=== PATIENT | female | born 1955 | race Caucasian/White ===

== ENCOUNTER 2018-08-10 17:42 | Inpatient (IN) | payer MEDICARE, OTHER ==
[~2018-08-10] VITALS: Ht 167.6 cm; Wt 53.1 kg
--- NOTE | 2018-08-10 18:58 | NUR ---
CALLED [facility] [phone]. SPOKE TO ARNOLD, SIDING MECHANIC STATES PT IS NON COMPLIANT W/ MEDS.
--- NOTE | 2018-08-10 19:20 | NUR ---
LAB AT BEDSIDE FOR BLOOD DRAW
[2018-08-10 19:27] LABS: BASOPHILS % (AUTO) 0.4 % (0.0-2.0); EOSINOPHILS % (AUTO) 1.1 % (0.0-6.0); HEMATOCRIT 38 % (33-45); HEMOGLOBIN 12.3 g/dL (11.5-14.8); LYMPHOCYTES # (AUTO) 1.1 /CMM (0.8-4.8); LYMPHOCYTES % (AUTO) 15.5 % (20.0-44.0); MEAN CORPUSCULAR HGB CONC 33 g/dl (31.0-36.0); MEAN CORPUSCULAR VOLUME 93 fL (82-100); MONOCYTES # (AUTO) 0.5 /CMM (0.1-1.30); MONOCYTES % (AUTO) 6.9 % (2.0-12.0); NEUTROPHILS # (AUTO) 5.4 /CMM (1.8-8.9); NEUTROPHILS % (AUTO) 76.1 % (43.0-81.0); PLATELET COUNT (AUTO) 322 /CMM (150-450); RDW COEFFICIENT OF VARIATION 14.6 (11.5-15.0); RED BLOOD CELL COUNT(AUTO) 4.06 MIL/uL (4.0-5.2); WHITE BLOOD COUNT (AUTO) 7.1 K/uL (4.3-11.0)
--- NOTE | 2018-08-10 19:29 | NUR ---
PT DROPPED OF BY ALEJANDRA NELSON FOR AMS, NOT EATING AND NO MEDICATION X 2 MONTHS, PT AOX3 AT THIS TIME. RR EVEN AND UNLABORED. NO SOB NOTED. NAD NOTED. PT NOTED WITH CARRILLO CATH, URINE FLOWING, NO S/S INFECTION AT THIS TIME. PT GOWNED AND PLACED ON MONITOR WAITING FOR MD MENDOZA.
[2018-08-10 19:36] LABS: CALCIUM, SERUM 9.1 mg/dL (8.5-10.1); CREATININE 0.5 mg/dL (0.6-1.3); POTASSIUM 3.6 mmol/L (3.5-5.1)
[2018-08-10] MEDS ORDERED: IV NS 0.9% 1,000 ML BAG IV ONE (20:00)
--- NOTE | 2018-08-10 20:05 | NUR ---
URINE COLLECTED VIA CARRILLO CATH PER MD ORDER. CALLED LAB FOR TRANSPORTATION SECURITY OFFICER.
--- NOTE | 2018-08-10 20:20 | NUR ---
PT TO CT.
[2018-08-10 20:37] LABS: APPEARANCE,URINE CLEAR (CLEAR); BILIRUBIN,URINE NEGATIVE (NEGATIVE); BLOOD, URINE 1+ Ery/uL (NEGATIVE); COLOR,URINE OTHER (YELLOW); KETONES,URINE NEGATIVE (NEGATIVE); LEUKOCYTE ESTERASE ,URINE 1+ (NEGATIVE); NITRITE, URINE NEGATIVE (NEGATIVE); PH,URINE 7.5 (5.0-8.0); PROTEIN,URINE NEGATIVE (NEGATIVE); UGLUCOSE NEGATIVE (NEGATIVE); UROBILINOGEN,URINE 0.2 EU/dL (0.2)
[2018-08-10 20:42] LABS: BACTERIA,URINE Few /HPF (None Seen); SQUAMOUS EPITHELIAL CELL,UR Few /HPF (None Seen)
[2018-08-10 21:15] VITALS: BP 151/90
[2018-08-10] MEDS ORDERED: CEFTRIAXONE 1GM BAG (ER ONLY) 50 ML IV ONE ×2 (21:30→21:31)
--- NOTE | 2018-08-10 21:30 | NUR ---
CALLED NURSING SUP REQUESTED MED SURG BED FOR THIS PATIENT.
--- NOTE | 2018-08-10 21:32 | NUR ---
PHLEBOTOMY BEDSIDE FOR BLOOD DRAW.
--- NOTE | 2018-08-10 21:37 | NUR ---
LAB AT [facility] FOR BLOOD CX DRAW
--- NOTE | 2018-08-10 21:39 | NUR ---
ADMIT TO ROOM 309-2
--- NOTE | 2018-08-10 21:48 | NUR ---
DR. COOPER SPEAKING TO DR. CLARK REGARDING ADMISSION.
--- NOTE | 2018-08-10 21:58 | NUR ---
REPORT GIVEN TO SKINNY MONZON FOR EDVIN
--- NOTE | 2018-08-10 22:06 | NUR ---
PT TRANSFERRED TO MS [facility] VIA [facility]. [facility] TRANSFUSING ON ADMISSION.
[2018-08-10] MEDS: AMLODIPINE BESYLATE 5 MG TABLET PO SCH (23:03)
[2018-08-10] MEDS ORDERED: ACETAMINOPHEN ES 500 MG TABLET PO PRN (23:30)
--- NOTE | 2018-08-10 23:50 | NUR ---
RN ADMITTING MS NOTES RECEIVED PT FROM ER VIA PEDRITO, PT IS A/OX3, SPEECH IS DELAYED BUT ABLE TO COMMUNICATE AND MAKE NEEDS KNOWN. IV ACCESS IN THE R AC #20G, CARRILLO CATHETER IN PLACE, VOIDING TO A STRAW YELLOW. NO COMPLAIN OF PAIN OR DISCOMFORT AT THE TIME. BED IN LOWEST LOCKED POSITION, CALL LIGHT WITHIN REACH AT ALL TIME, WILL CONTINUE TO MONITOR
[2018-08-11] MEDS: ENOXAPARIN SODIUM 40 MG/0.4 ML DISP.SYRIN SQ SCH ×2 (00:16→21:28)
[2018-08-11 00:47] VITALS: BP 135/85
--- NOTE | 2018-08-11 06:18 | NUR ---
RN CLOSING MS NOTES PT IN BED, RESTING A/OX4, VERBALLY RESPONSIVE AND ABLE TO MAKE NEEDS KNOWN. BREATHING EVEN AND UNLABORED ON O2 2L VIA NC, NO COUGH OR CONGESTION. NO COMPLAINT OF PAIN OR DISCOMFORT DURING SHIFT. BED IS LOCKED AND IN LOWEST POSITION, SIDE RAILS UP X2, CALL LIGHT IS WITHIN REACH. PERSONAL CARE RENDERED, KEPT CLEAN AND DRY AT ALL TIMES. NO SIGNIFICANT CHANGE DURING SHIFT, WILL ENDORSE TO DAY NURSE FOR EDVIN
[2018-08-11 06:28] LABS: BASOPHILS # (AUTO) 0.1 /CMM (0.0-0.2); BASOPHILS % (AUTO) 1.1 % (0.0-2.0); EOSINOPHILS % (AUTO) 2.3 % (0.0-6.0); HEMATOCRIT 38 % (33-45); HEMOGLOBIN 12.8 g/dL (11.5-14.8); LYMPHOCYTES # (AUTO) 1.3 /CMM (0.8-4.8); MEAN CORPUSCULAR HGB CONC 33 g/dl (31.0-36.0); MEAN CORPUSCULAR VOLUME 93 fL (82-100); MONOCYTES # (AUTO) 0.5 /CMM (0.1-1.30); MONOCYTES % (AUTO) 10.2 % (2.0-12.0); NEUTROPHILS # (AUTO) 2.9 /CMM (1.8-8.9); NEUTROPHILS % (AUTO) 59.4 % (43.0-81.0); PLATELET COUNT (AUTO) 315 /CMM (150-450); RDW COEFFICIENT OF VARIATION 14.4 (11.5-15.0); RED BLOOD CELL COUNT(AUTO) 4.14 MIL/uL (4.0-5.2); WHITE BLOOD COUNT (AUTO) 4.9 K/uL (4.3-11.0)
[2018-08-11 06:58] LABS: CALCIUM, SERUM 8.6 mg/dL (8.5-10.1); CREATININE 0.6 mg/dL (0.6-1.3); POTASSIUM 3.7 mmol/L (3.5-5.1)
--- NOTE | 2018-08-11 07:57 | NUR ---
MS RN OPENING NOTE PT RECEIVED IN BED AT LOWEST AND LOCKED POSITION WITH SIDE RAILS UP X2, A/O X2-3, BREATHING EVEN AND UNLABORED ON 2L VIA NC, PT WAS NOTED TO HAVE A CARRILLO IN PLACE THAT IS DRAINING, IV PATENT AND INTACT, SAFETY PRECAUTIONS IN PLACE, CALL LIGHT WITHIN REACH, WILL MONITOR ACCORDINGLY
[2018-08-11 08:00] VITALS: BP 152/94
[2018-08-11] MEDS: AMLODIPINE BESYLATE 5 MG TABLET PO SCH (09:03)
[2018-08-11 16:00] VITALS: BP 143/81
[2018-08-11] MEDS ORDERED: METO25TA6 PO (17:02)
[2018-08-11] MEDS ORDERED: HALO5TAB PO (17:02)
[2018-08-11] MEDS ORDERED: ASPI-1169 PO (17:02)
[2018-08-11] MEDS ORDERED: AMLO2.5T3 PO (17:02)
[2018-08-11] MEDS ORDERED: DOCU-141 PO (17:02)
[2018-08-11] MEDS ORDERED: ATOR80TA PO (17:02)
--- NOTE | 2018-08-11 18:31 | NUR ---
MS RN CLOSING NOTE PT IN BED AT LOWEST AND LOCKED POSITION WITH SIDE RAILS UP X2, A/O X2-3, BREATHING EVEN AND UNLABORED ON 2L VIA NC, PT CARRILLO WAS D/C, IV PATENT AND INTACT, PT IS AMBULATORY, NOTIFIED OF MED RECON, SAFETY PRECAUTIONS IN PLACE, CALL LIGHT WITHIN REACH, ALL NEEDS ATTENDED TO, WILL ENDORSE TO HAM BONER NURSE FOR CONTINUITY OF CARE
--- NOTE | 2018-08-11 19:45 | NUR ---
RN OPENING NOTES RECEIVED REPORT FROM DAYSHIFT SKINNY ALCANTARA. FOUND Pt AWAKE IN BED, WATCHING TV. NO S/S OF ACUTE DISTRESS OR SOB NOTED. RESPIRATIONS EVEN AND UNLABORED. Pt IS A/OX2-3; Pt IS VERBAL AND ABLE TO MAKE NEEDS KNOWN. CARRILLO CATHETER WAS D/C'd. BSC AT BEDSIDE. IV ACCESS ON RAC #20G, SL. SAFETY MEASURES IN PLACE. BED LOW, LOCKED, HOB ELEVATED, SIDE RAILS UP, CALL LIGHT AND BEDSIDE TABLE WITHIN REACH. WILL CONTINUE TO MONITOR Pt THROUGHOUT THE NIGHT FOR SAFETY.
[2018-08-11 20:00] VITALS: BP 134/83
[2018-08-11] MEDS ORDERED: CLON0.5T12 PO (22:49)
[2018-08-11] MEDS ORDERED: TEMA15CA PO (22:49)
[2018-08-11] MEDS ORDERED: ALBU8.5H8 INH (22:49)
[2018-08-11] MEDS ORDERED: OLAN20TA3 PO (22:49)
--- NOTE | 2018-08-12 06:45 | NUR ---
RN CLOSING NOTES NO SIGNIFICANT CHANGES IN Pt's CONDITION. Pt REMAINS STABLE AT THIS TIME. NO S/S OF ACUTE DISTRESS OR SOB NOTED DURING THE NIGHT. RESPIRATIONS EVEN AND UNLABORED. ALL NEEDS MET AND ATTENDED TO. SAFETY MEASURES IN PLACE. BED LOW, LOCKED, HOB ELEVATED, SIDE RAILS UP, CALL LIGHT AND BEDSIDE TABLE WITHIN REACH. WILL ENDORSE TO DAYSHIFT RN FOR Pt's EDVIN.
--- NOTE | 2018-08-12 07:28 | NUR ---
MS RN OPENING NOTES RECEIVED PT AWAKE IN BED IN NO ACUTE SIGNS OF DISTRESS. HOB ELEVATED. A/O X3. VERBALLY RESPONSIVE WITH NO C/O PAIN OR DISCOMFORTS VOICED AT THIS TIME. PT ON 02 VIA N/C AT 2LPM, TOLERATING WELL WITH NO SOB NOTED. IV ACCESS ON RAC #20G INTACT AND PATENT, SL ONLY. SAFETY MEASURES IN PLACE. BED LOW LOCKED POSITION WITH SIDE RAILS UP X2. CALL LIGHT AND BEDSIDE TABLE WITHIN REACH OF PT. WILL CONTINUE TO MONITOR PT ACCORDINGLY.
[2018-08-12 08:00] VITALS: BP 150/96
--- NOTE | 2018-08-12 08:20 | NUR ---
RN NOTES DR COOPER CAME TO UNIT AND INFORMED HIM TO VERIFY AND RECONCILE HOME MEDS AND SAID THAT HE WILL LOOK AT IT.
[2018-08-12] MEDS: AMLODIPINE BESYLATE 5 MG TABLET PO SCH (08:25)
[2018-08-12] MEDS ORDERED: METOPROLOL TARTRATE 25 MG TABLET PO SCH (09:00)
[2018-08-12] MEDS ORDERED: AMLODIPINE BESYLATE 2.5 MG TABLET PO SCH (09:00)
[2018-08-12] MEDS: ASPIRIN 81 MG TAB.CHEW PO SCH (09:15)
[2018-08-12] MEDS: clonazePAM 0.5 MG TABLET PO SCH ×2 (09:15→16:38)
[2018-08-12] MEDS: DOCUSATE SODIUM 100 MG CAPSULE PO SCH ×2 (09:16→16:38)
[2018-08-12] MEDS: HALOPERIDOL 5 MG TABLET PO SCH ×2 (09:16→16:38)
[2018-08-12] MEDS: BENAZEPRIL HCL 10 MG TABLET PO SCH (09:17)
[2018-08-12 10:26] LABS: CALCIUM, SERUM 8.8 mg/dL (8.5-10.1); CREATININE 0.6 mg/dL (0.6-1.3); POTASSIUM 4.1 mmol/L (3.5-5.1)
[2018-08-12 16:00] VITALS: BP 100/70
--- NOTE | 2018-08-12 18:34 | NUR ---
MS RN CLOSING NOTES PATIENT IN BED RESTING AT MODERATE HIGH BACKREST POSITION. A/O X3, SAME ABLE TO COMMUNICATE VERBALLY. PT WITH NO SIGNIFICANT CHANGES IN STATUS NOTED THROUGHOUT THE DAY. ON SUPPLEMENTAL 02 VIA N/C AT 2LPM, TOLERATING WELL WITH NO SOB NOTED. IV ACCESS ON RAC #20G INTACT AND PATENT, FLUSHES EASILY WITH NS, NO S/S OF INFILTRATION NOTED. ALL SAFETY MEASURES KEPT IN PLACE. BED IN LOW LOCKED POSITION WITH SIDE RAILS UP X2. CALL LIGHT AND BEDSIDE TABLE WITHIN EASY REACH OF PT. ALL NEEDS AND CARE ATTENDED WELL. WILL ENDORSE TO BINGO ATTENDANT NURSE FOR EDVIN.
--- NOTE | 2018-08-12 19:50 | NUR ---
RN OPENING NOTES RECEIVED REPORT FROM DAYSHIFT RN SANTANA. FOUND Pt ASLEEP IN BED. NO S/S OF ACUTE DISTRESS OR SOB NOTED. RESPIRATIONS EVEN AND UNLABORED. Pt IS A/OX2-3; Pt IS VERBAL AND ABLE TO MAKE NEEDS KNOWN. BSC AT BEDSIDE. IV ACCESS ON RAC #20G, SL. SAFETY MEASURES IN PLACE. BED LOW, LOCKED, HOB ELEVATED, SIDE RAILS UP, CALL LIGHT AND BEDSIDE TABLE WITHIN REACH. WILL CONTINUE TO MONITOR Pt THROUGHOUT THE NIGHT FOR SAFETY.
[2018-08-12 20:35] VITALS: BP 111/68
[2018-08-12] MEDS ORDERED: OLANZAPINE 10 MG TABLET PO SCH (22:00)
[2018-08-12] MEDS ORDERED: TEMAZEPAM 15 MG CAPSULE PO SCH (22:00)
[2018-08-12] MEDS: ENOXAPARIN SODIUM 40 MG/0.4 ML DISP.SYRIN SQ SCH (22:38)
--- NOTE | 2018-08-13 06:47 | NUR ---
RN CLOSING NOTES NO SIGNIFICANT CHANGES IN Pt's CONDITION. Pt REMAINS STABLE AT THIS TIME. NO S/S OF ACUTE DISTRESS OR SOB NOTED DURING THE NIGHT. RESPIRATIONS EVEN AND UNLABORED. ALL NEEDS MET AND ATTENDED TO. SAFETY MEASURES IN PLACE. BED LOW, LOCKED, HOB ELEVATED, SIDE RAILS UP, CALL LIGHT AND BEDSIDE TABLE WITHIN REACH. D/C PLAN TODAY TO [facility]. WILL ENDORSE TO DAYSHIFT RN FOR Pt's EDVIN.
[2018-08-13 08:00] VITALS: BP 125/75
--- NOTE | 2018-08-13 08:00 | NUR ---
M/S RN - Assessment Patient awake, A/O x 3, denies pain, no apparent distress noted, stable on room air. Saline lock on the RAC is patent, intact, with no signs of infiltration. Skin is intact, pt independent with bed mobility. Fall precautions maintained. Patient educated on plan of care. [facility]
[2018-08-13] MEDS: AMLODIPINE BESYLATE 5 MG TABLET PO SCH (08:36)
[2018-08-13] MEDS: clonazePAM 0.5 MG TABLET PO SCH ×2 (08:36→16:41)
[2018-08-13] MEDS: ASPIRIN 81 MG TAB.CHEW PO SCH (08:36)
[2018-08-13] MEDS: DOCUSATE SODIUM 100 MG CAPSULE PO SCH ×2 (08:36→16:41)
[2018-08-13] MEDS: HALOPERIDOL 5 MG TABLET PO SCH ×2 (08:37→16:41)
[2018-08-13] MEDS: BENAZEPRIL HCL 10 MG TABLET PO SCH (08:37)
--- NOTE | 2018-08-13 15:45 | NUR ---
M/S RN - Discharge Patient to be discharged to [facility] today. Reviewed discharge instructions with SKINNY Bowden [phone] and she verbalized full understanding and all questions answered to her satisfaction. Ambulance pick-up time at 18:00 per gearcase assembler. Endorsed pt accordingly.
[2018-08-13 16:00] VITALS: BP 96/69
--- NOTE | 2018-08-13 19:29 | NUR ---
M/S RN - Discharge Patient noted to be hypotensive BP=88/61, asymptomatic. Called SNF RN Dennise and made aware of pt's low BP. Per Dennise RN they won't accept the patient. Charge nurse made aware and will notify Dr. Watson. Endorsed to warehouse shift supervisor for continuity of care.
--- NOTE | 2018-08-13 19:51 | NUR ---
M/S RN - BP Patient's blood pressure now was 94/59, ambulance called ETA 20:15, endorsed to shift production supervisor for completion of discharge.
--- NOTE | 2018-08-13 20:01 | NUR ---
MS/RN OPENING NOTES PT RECEIVED WITH EYES CLOSED. RESTING COMFORTABLY IN BED. ON 2L O2 VIA NC, BREATHING EVEN AND UNLABORED. NO S/S OF ACUTE DISTRESS. PT MADE AWARE OF CONTINUATION OF DISCHARGE DUE TO INCREASED BP OF 94/59. SKINNY YADAV FROM [facility] MADE AWARE OF AMBULANCE ETA. WILL CONTINUE TO MONITOR
--- NOTE | 2018-08-13 20:35 | NUR ---
MS/RN NOTES AMBULANCE ARRIVED, REPORT GIVEN AND V/S CHECKED. BP 116/71, HR 98 SPO2 95% ON 2L O2. PT LEFT UNIT VIA GURNEY IN STABLE CONDITION. ALL BELONGINGS AND PAPERWORK SENT WITH PATIENT. ID BAND REMOVED.
[2018-08-13] MEDS ORDERED: ATORVASTATIN 10 MG TABLET PO SCH (22:00)
== END 2018-08-13 20:34 | DRG 641 ==
LOC: ER 17:47 → MED 21:45
PROVIDERS: ADMIT Internal Medicine; ATTEND Internal Medicine
DX: R63.1 Polydipsia (principal); E87.1 Hypo-osmolality and hyponatremia; G93.40 Encephalopathy, unspecified; F20.0 Paranoid schizophrenia; Z88.0 Allergy status to penicillin; I10 Essential (primary) hypertension; J44.9 Chronic obstructive pulmonary disease, unspecified; R09.02 Hypoxemia; R82.71 Bacteriuria; Z82.49 Family history of ischemic heart disease and other diseases of the circulatory system; Z87.891 Personal history of nicotine dependence; Z99.81 Dependence on supplemental oxygen
CPT/HCPCS: 36415; 70450-TC; 80048-TC; 81000-TC; 83605-TC; 84484-TC; 85025-TC; 87040-TC; 87081-TC; 87086-TC; 87186-TC; A4606; G0378; J0696; J1650; J7030; Z7610

== ENCOUNTER 2019-12-14 08:14 | Inpatient (IN) | payer MEDICARE, OTHER ==
[~2019-12-14] VITALS: Ht 165.1 cm; Wt 45.4 kg
[~2019-12-14 08:14] MED LIST: ALBU8.5H8 INH; AMLO2.5T4 PO; ASPI-1169 PO; ATOR80TA PO; BENA10TA74 PO; CLON0.5T4 PO; DOCU-141 PO; HALO5TAB PO; OLAN20TA3 PO; TEMA15CA PO
--- NOTE | 2019-12-14 08:18 | NUR ---
[id number]. PER EMS REPORT PT C/O SOB X TODAY , PT DENIES CHEST PAIN, C/O THE FOOD AT THE FACILITY. TO ER BED 11, HOOKED TO MONITOR, CHANGED TO HOSP GOWN, PROVIDED W WARM BLANKET, PATIENT AOx2, BREATGING EVEN AND UNLABORED, ON O2 AT 2LPM VIA NC. DR VILLATORO AT BEDSIDE
[2019-12-14] MEDS ORDERED: methylPREDNISolone SOD SUCC 125 MG/2ML VIAL IV ONE (08:30)
[2019-12-14] MEDS ORDERED: ALBUTEROL FS 2.5 MG/3 ML VIAL.NEB CONTNEB ONE (08:30)
[2019-12-14] MEDS ORDERED: OLANZAPINE 5 MG TABLET PO ONE (08:30)
[2019-12-14] MEDS ORDERED: ALBUTEROL FS 2.5 MG/3 ML VIAL.NEB ONE (08:32)
[2019-12-14] MEDS ORDERED: methylPREDNISolone SOD SUCC 125 MG/2ML VIAL ONE (08:33)
[2019-12-14] MEDS ORDERED: OLANZAPINE 5 MG TABLET ONE (08:35)
--- NOTE | 2019-12-14 08:41 | NUR ---
ONGOING BREATHING TX
[2019-12-14 08:52] LABS: BASOPHILS % (AUTO) 1.2 % (0.0-2.0); EOSINOPHILS % (AUTO) 1.5 % (0.0-6.0); HEMATOCRIT 38 % (33-45); HEMOGLOBIN 12.5 g/dL (11.5-14.8); LYMPHOCYTES # (AUTO) 0.8 /CMM (0.8-4.8); LYMPHOCYTES % (AUTO) 20.7 % (20.0-44.0); MEAN CORPUSCULAR HGB CONC 33 g/dl (31.0-36.0); MEAN CORPUSCULAR VOLUME 91 fL (82-100); MONOCYTES # (AUTO) 0.3 /CMM (0.1-1.30); MONOCYTES % (AUTO) 7.6 % (2.0-12.0); NEUTROPHILS # (AUTO) 2.8 /CMM (1.8-8.9); PLATELET COUNT (AUTO) 234 /CMM (150-450); RED BLOOD CELL COUNT(AUTO) 4.24 MIL/uL (4.0-5.2)
[2019-12-14 08:56] LABS: CALCIUM, SERUM 9.4 mg/dL (8.5-10.1); CARBON DIOXIDE 35 mmol/L (21-32); CHLORIDE 100 mmol/L (98-107); CREATININE 0.5 mg/dL (0.6-1.3); GLUCOSE 123 mg/dL (74-106); POTASSIUM 3.6 mmol/L (3.5-5.1); SODIUM SERUM 138 mmol/L (136-145); UREA NITROGEN, BLOOD 21 mg/dL (7-18)
[2019-12-14 09:02] LABS: ALANINE AMINOTRANSFERASE 14 U/L (12-78); ALBUMIN 3.8 g/dL (3.4-5.0); ALKALINE PHOSPHATASE 90 U/L (46-116); ASPARTATE AMINOTRANSFERASE 15 U/L (15-37); BILIRUBIN,DIRECT 0.1 mg/dL (0.0-0.2); BILIRUBIN,TOTAL 0.7 mg/dL (0.2-1.0); TOTAL PROTEIN, SERUM 6.7 g/dL (6.4-8.2)
--- NOTE | 2019-12-14 09:11 | NUR ---
PAGED DR. COOPER.
[2019-12-14] MEDS ORDERED: CHOL100040 PEG (09:25)
[2019-12-14] MEDS ORDERED: MONT10TA22 PO (09:25)
[2019-12-14] MEDS ORDERED: POLY17PO4 PO (09:25)
[2019-12-14] MEDS ORDERED: SENN-168 PO (09:25)
[2019-12-14] MEDS ORDERED: ALBU2.5V38 IH (09:25)
[2019-12-14] MEDS ORDERED: TIOT18CA3 IH (09:25)
[2019-12-14] MEDS ORDERED: BISA10SU11 RC (09:25)
[2019-12-14] MEDS ORDERED: FLUT1DIS5 IH (09:25)
[2019-12-14] MEDS ORDERED: BENA20TA78 PO (09:25)
[2019-12-14] MEDS ORDERED: MAGN400O6 PO (09:25)
[2019-12-14] MEDS ORDERED: ACET-868 PO (09:25)
--- NOTE | 2019-12-14 09:42 | NUR ---
CALLED NURSING SUP FOR M/S BED.
--- NOTE | 2019-12-14 09:56 | NUR ---
NURSING SUP GAVE M/S BED 321-2.
--- NOTE | 2019-12-14 10:14 | NUR ---
REPORT GIVEN TO CAROL OF MS UNIT
--- NOTE | 2019-12-14 10:55 | NUR ---
ADMISSION NOTES PT BROUGHT IN FROM ER AT 1055 AM VIA [facility]. WITH ADMITTING DX OF SOB/COPD EXACERBATION. HX OF COPD, HTN, BRONCHITIS, APPENDIX REMOVAL, HYOPERLIPIDEMIA AND SCHIZOPHRENIA. PT IS A0X2, SHE KNOWS WHO SHE IS, AND KNOWS THAT SHE IS AT [facility], HOWEVER, SHE IS UNABLE TO TELL ME TODAYS DAY/DATE. SHE HAS PERIODS OF FORGETFULNESS. HOWEVER, SHE DOES REMEMBER SOME OF HER MEDICAL HX. PT HAS NO CARDIAC OR RESP DISTRESS NOTED. NO SOB, STABLE ON O2 2L VIA NC SATURATING AT 95%. CONTINENT OF B/B, SHE TOLD ME THAT HER LAST BM WAS YESTERDAY. BODY CHECK/SKIN ASSESSMENT DONE. NOTED WITH R KNEE SCAR AND SACRAL REDNESS. SAFETY PRECAUTIONS IN PLACE. BED LOCKED AND IN LOW POSITION. SIDE RAILS UP. REMINDED PT TO CALL FOR ASSISTANCE IF WANTING TO GET UP FROM BED. CALL LIGHT WITHIN REACH. IV ACCESS NOTED ON R FORE ARM G18. FLUSHING WELL. NO S/S OF INFILTRATION OR INFECTION NOTED. MRSA SWAB OBTAINED. VS NOTED AT BP= 114/80, P=99, T=98.9, RR=18, 95% ON 2L O2. PT WAS ORIENTED TO UNIT AND ROOM.
--- NOTE | 2019-12-14 11:00 | NUR ---
SEEN BY DR COOPER PT SEEN BY DR COOPER. PROVIDED ALL ADMISSION ORDERS. MED RECON DONE. FAXED TO PHARMACY
[2019-12-14 11:28] VITALS: BP 114/80
[2019-12-14] MEDS ORDERED: BISACODYL SUPP (10 MG) 10 MG/SUPP.RECT SUPP.RECT RC PRN (12:00)
[2019-12-14] MEDS ORDERED: ALBUTEROL FS 2.5 MG/3 ML VIAL.NEB IH PRN (12:00)
[2019-12-14] MEDS ORDERED: MAGNESIUM HYDROXIDE 30 ML UDC PO PRN (12:00)
[2019-12-14] MEDS ORDERED: ACETAMINOPHEN 325 MG TABLET PO PRN (12:00)
[2019-12-14 12:33] VITALS: BP 114/80
[2019-12-14] MEDS: POLYETHYLENE GLYCOL 3350 17 GM POWD.PACK PO SCH (12:54)
[2019-12-14] MEDS: AMLODIPINE BESYLATE 2.5 MG TABLET PO SCH (12:54)
[2019-12-14] MEDS: clonazePAM 0.5 MG TABLET PO SCH ×2 (12:54→17:08)
[2019-12-14] MEDS: AZITHROMYCIN 250 MG TABLET PO SCH (12:54)
[2019-12-14] MEDS: BENAZEPRIL HCL 20 MG TABLET PO SCH (12:55)
[2019-12-14] MEDS: predniSONE 20 MG TABLET PO SCH (12:55)
[2019-12-14] MEDS: CHOLECALCIFEROL 1,000 UNIT TABLET (VIT D3) PO SCH (12:55)
[2019-12-14] MEDS: MONTELUKAST SODIUM (10MG) 10 MG TABLET PO SCH (17:08)
--- NOTE | 2019-12-14 17:49 | NUR ---
MS RN CLOSING NOTES PT IN BED, AWAKE AND A0X2. SHE HAS PERIODS OF FORGETFULNESS. PT HAS NO CARDIAC OR RESP DISTRESS NOTED. NO SOB, STABLE ON O2 2L VIA NC SATURATING AT 97%. CONTINENT OF B/B. SAFETY PRECAUTIONS IN PLACE. BED LOCKED AND IN LOW POSITION. SIDE RAILS UP. REMINDED PT TO CALL FOR ASSISTANCE IF WANTING TO GET UP FROM BED. CALL LIGHT WITHIN REACH. IV ACCESS NOTED ON R FORE ARM G18. FLUSHING WELL. NO S/S OF INFILTRATION OR INFECTION NOTED. NO COPMPLAINTS OF PAIN OR DISCOMFORT, RESTING COMFORTABLY IN BED.
--- NOTE | 2019-12-14 19:30 | NUR ---
MS RN OPENING NOTES PATIENT SLEEPING IN BED. EASY TO AWAKEN. A/OX2. ON 2L NC. NO S/S OF ACUTE RESPIRATORY DISTRESS AND NO COMPLAINTS OF PAIN AT THIS TIME. IV PRESENT ON RIGHT FA, SIZE 18, INTACT & PATENT, HEP LOCKED. BED LOCKED, ALARM ON, SIDE RAILS X2, CALL LIGHT WITHIN REACH. WILL CONTINUE TO MONITOR.
[2019-12-14 20:00] VITALS: BP 95/57
[2019-12-14] MEDS ORDERED: IV NS 0.9% 1,000 ML BAG IV PRN (20:30)
[2019-12-14] MEDS ORDERED: OLANZAPINE 10 MG TABLET PO SCH (22:00)
[2019-12-14] MEDS ORDERED: TEMAZEPAM 15 MG CAPSULE PO SCH (22:00)
[2019-12-14] MEDS: SENNOSIDES 8.6 MG TABLET PO SCH (22:33)
--- NOTE | 2019-12-15 07:46 | NUR ---
MS RN CLOSING NOTES PATIENT SLEEPING IN BED, EASY TO AWAKEN. A/O X2. ON 2L NC. NO S/S OF SOB OR PAIN AT THIS TIME. IV ON RIGHT FA, SIZE 18, INTACT & PATENT, NS RUNNING AT 75 CC/HR. BED LOCKED, ALARM ON, SIDE RAILS X2, CALL LIGHT WITHIN REACH. WILL ENDORSE TO DAY SHIFT NURSE TO FOLLOW PLAN OF CARE.
--- NOTE | 2019-12-15 07:50 | NUR ---
MS RN RECEIVED ON BED, AWAKE,ALERT,ORIENTED X2-3,NOT IN ANY FORM OF DISTRESS, RESPIRATIONS EVEN AND UNLABORED,NO SOB NOTED, LUNGS ARE DIMINISHED,ABDOMEN SOFT,POSITIVE BOWEL SOUNDS,DENIES PAIN AT THIS TIME,ALL NEEDS ATTENDED.
[2019-12-15 08:00] VITALS: BP 107/61
[2019-12-15] MEDS: AMLODIPINE BESYLATE 2.5 MG TABLET PO SCH (09:00)
[2019-12-15] MEDS: BENAZEPRIL HCL 20 MG TABLET PO SCH (09:00)
--- NOTE | 2019-12-15 09:30 | NUR ---
MS BABB BREAKFAST SERVED,DUE MEDS GIVEN,TOLERATED WELL.
[2019-12-15] MEDS: POLYETHYLENE GLYCOL 3350 17 GM POWD.PACK PO SCH (10:11)
[2019-12-15] MEDS: clonazePAM 0.5 MG TABLET PO SCH ×2 (10:11→17:07)
[2019-12-15] MEDS: CHOLECALCIFEROL 1,000 UNIT TABLET (VIT D3) PO SCH (10:12)
[2019-12-15] MEDS: predniSONE 20 MG TABLET PO SCH (10:12)
--- NOTE | 2019-12-15 14:00 | NUR ---
MS RN WAS SEEN BY DR. ALLISON Reynoso/ ORDERS MADE AND CARRIED OUT.
[2019-12-15 16:00] VITALS: BP 100/68
[2019-12-15] MEDS: AZITHROMYCIN 250 MG TABLET PO SCH (17:07)
[2019-12-15] MEDS: MONTELUKAST SODIUM (10MG) 10 MG TABLET PO SCH (17:07)
[2019-12-15 20:00] VITALS: BP_SYST 112; BP_SYST 94; BP_DIAS 64; BP_DIAS 66
--- NOTE | 2019-12-15 20:00 | NUR ---
MS RN NOTES RECEIVED PATIENT AWAKE IN BED WITH NO DISTRESS NOTED. CALL LIGHT WITHIN REACH. NO C/O PAIN OR DISCOMFORT. PERIPHERAL LINE INTACT AND PATENT. ENCOURAGED USE OF CALL LIGHT FOR ASSISTANCE AND VERBALIZED GOOD UNDERSTANDING. BED IN LOW LOCK SETTING WITH BED ALARM ON AND FUNCTIONING PROPERLY. ROOM FREE OF CLUTTER AND BELONGINGS KEPT NEAR BEDSIDE. WILL CONTINUE TO MONITOR
[2019-12-15] MEDS: IV NS 0.9% 1,000 ML IV PRN (20:57)
[2019-12-15] MEDS: MIRTAZAPINE 15 MG TABLET PO SCH (21:02)
[2019-12-15] MEDS: ATORVASTATIN 40 MG TABLET PO SCH (21:02)
[2019-12-15] MEDS: OLANZAPINE 10 MG TABLET PO SCH (21:02)
[2019-12-15] MEDS: SENNOSIDES 8.6 MG TABLET PO SCH (22:00)
[2019-12-16] VITALS: BP 110/59
[2019-12-16 04:00] VITALS: BP 101/51
--- NOTE | 2019-12-16 06:24 | NUR ---
MS RN NOTES PATIENT ASLEEP IN BED WITH NO DISTRESS NOTED. CALL LIGHT WITHIN REACH. NO C/O PAIN OR DISCOMFORT. ALL DUE MEDS GIVEN ORDERED WITH NO ASE. PERIPHERAL LINE INTACT AND PATENT. BED IN LOW LOCK SETTING WITH BED ALARM ON AND FUNCTIONING PROPERLY. ROOM FREE OF CLUTTER AND BELONGINGS KEPT NEAR BEDSIDE. WILL ENDORSE TO ONCOMING SHIFT.
--- NOTE | 2019-12-16 07:51 | NUR ---
MS RN OPENING NOTE PATIENT IN BED RESTING COMFORTABLY. PATIENT IN NO ACUTE DISTRESS. NO SOB NOTED. PATIENT BREATHING IS EVEN AND UNLABORED. PATIENT SAFETY PRECAUTIONS IN PLACE. PATIENT IN NO PAIN AT THIS TIME. PATIENT BED IS LOCKED AND IN LOWEST POSITION. CALL LIGHT WITHIN REACH. WILL CONTINUE TO MONITOR.
[2019-12-16 08:00] VITALS: BP_SYST 129; BP_SYST 142; BP_DIAS 70; BP_DIAS 80
[2019-12-16] MEDS: predniSONE 20 MG TABLET PO SCH (09:00)
[2019-12-16] MEDS: clonazePAM 0.5 MG TABLET PO SCH ×2 (09:00→17:05)
[2019-12-16] MEDS: POLYETHYLENE GLYCOL 3350 17 GM POWD.PACK PO SCH (09:00)
[2019-12-16] MEDS: CHOLECALCIFEROL 1,000 UNIT TABLET (VIT D3) PO SCH (09:00)
[2019-12-16] MEDS: AZITHROMYCIN 250 MG TABLET PO SCH (11:46)
[2019-12-16 12:52] LABS: ALBUMIN 3.2 g/dL (3.4-5.0); BILIRUBIN,TOTAL 0.4 mg/dL (0.2-1.0); CALCIUM, SERUM 8.7 mg/dL (8.5-10.1); CREATININE 0.5 mg/dL (0.6-1.3); POTASSIUM 4.1 mmol/L (3.5-5.1); TOTAL PROTEIN, SERUM 5.8 g/dL (6.4-8.2)
[2019-12-16] MEDS: ENSURE ENLIVE CHOC 237 ML CAN PO SCH ×2 (15:10→17:06)
[2019-12-16] MEDS: IV NS 0.9% 1,000 ML IV PRN (15:30)
[2019-12-16 16:00] VITALS: BP 101/73
[2019-12-16] MEDS: MONTELUKAST SODIUM (10MG) 10 MG TABLET PO SCH (17:06)
--- NOTE | 2019-12-16 19:40 | NUR ---
MS RN CLOSING NOTE PATIENT IN BED RESTING COMFORTABLY.PATIENT IN NO ACUTE DISTRESS. NO SOB NOTED. PATIENT BREATHING IS EVEN AND UNLABORED. PATIENT NEEDS AND CONCERNS ADDRESSED. PATIENT SAFETY PRECAUTIONS IN PLACE. IV PATENT AND INTACT. PATIENT BED IS LOCKED AND IN LOWEST POSITION. CALL LIGHT WITHIN REACH. WILL ENDORSE CARE TO PM SHIFT FOR EDVIN.
--- NOTE | 2019-12-16 20:00 | NUR ---
ms pako initial notes received report from am nurse and seen pt in bed awake and alert watching TV at this time with IVF NS at 75ml/hr infusing on her right forearm patent and intact. pt denies any pain or any discomfort. kept her warm and comfortable at all times. place call light at reach. will continue monitoring. safety precaution applied for pt safety.
[2019-12-16 21:18] VITALS: BP 117/73
[2019-12-16] MEDS: ATORVASTATIN 40 MG TABLET PO SCH (21:51)
[2019-12-16] MEDS: MIRTAZAPINE 15 MG TABLET PO SCH (21:51)
[2019-12-16] MEDS: OLANZAPINE 10 MG TABLET PO SCH (21:51)
[2019-12-16] MEDS: SENNOSIDES 8.6 MG TABLET PO SCH (21:51)
--- NOTE | 2019-12-16 21:55 | NUR ---
ms pako notes routine meds given pt tolerated well, no aspiration noted. kept her warm and comfortable at all times. place call light at reach.
--- NOTE | 2019-12-17 01:53 | NUR ---
ms pako notes checked pt pt sleeping comfortably in bed without any acute distress noted. IVF still infusing. kept her warm and comfortable at all times. place call light at reach. will continue monitoring.
[2019-12-17 06:24] LABS: BASOPHILS % (AUTO) 0.3 % (0.0-2.0); EOSINOPHILS % (AUTO) 0.4 % (0.0-6.0); HEMATOCRIT 37 % (33-45); HEMOGLOBIN 12.3 g/dL (11.5-14.8); LYMPHOCYTES # (AUTO) 1.5 /CMM (0.8-4.8); LYMPHOCYTES % (AUTO) 33.4 % (20.0-44.0); MEAN CORPUSCULAR HGB CONC 34 g/dl (31.0-36.0); MEAN CORPUSCULAR VOLUME 90 fL (82-100); MONOCYTES # (AUTO) 0.4 /CMM (0.1-1.30); MONOCYTES % (AUTO) 8.3 % (2.0-12.0); NEUTROPHILS # (AUTO) 2.6 /CMM (1.8-8.9); NEUTROPHILS % (AUTO) 57.6 % (43.0-81.0); PLATELET COUNT (AUTO) 212 /CMM (150-450); RED BLOOD CELL COUNT(AUTO) 4.08 MIL/uL (4.0-5.2); WHITE BLOOD COUNT (AUTO) 4.5 K/uL (4.3-11.0)
[2019-12-17] MEDS: IV NS 0.9% 1,000 ML IV PRN (06:35)
--- NOTE | 2019-12-17 06:57 | NUR ---
ms men's golf coach closing notes pt awake and alert watching tv and denies any pain or any discomfort. stable jeanne the night and slept well. all due meds given and all needs met. kept her warm and comfortable at all times. will endorse to am nurse for continuity of care.
--- NOTE | 2019-12-17 07:30 | NUR ---
RN MS NOTES PT IN BED, AWAKE, ALERT AND ORIENTED, NO COMPLAINT OF PAIN, RESPIRATIONS NORMAL, NO COMPLAINT OF SOB, STATED SHE SLEPT WELL DURING THE NIGHT, CALL LIGHT WITHIN REACH, IV FLUIDS INFUSING WELL, KEPT COMPUTER TECHNOLOGY TEACHER BED.
[2019-12-17 08:00] VITALS: BP 147/76
[2019-12-17] MEDS: predniSONE 20 MG TABLET PO SCH (08:18)
[2019-12-17] MEDS: FLUTICASONE/VILANTEROL 1 EACH BLST.W.DEV IH SCH (08:18)
[2019-12-17] MEDS: POLYETHYLENE GLYCOL 3350 17 GM POWD.PACK PO SCH (08:18)
[2019-12-17] MEDS: CHOLECALCIFEROL 1,000 UNIT TABLET (VIT D3) PO SCH (08:18)
[2019-12-17] MEDS: clonazePAM 0.5 MG TABLET PO SCH ×2 (08:19→17:10)
[2019-12-17] MEDS: ENSURE ENLIVE CHOC 237 ML CAN PO SCH ×3 (08:31→17:09)
[2019-12-17] MEDS: AZITHROMYCIN 250 MG TABLET PO SCH (12:28)
--- NOTE | 2019-12-17 13:00 | NUR ---
RN MS NOTES PT IN BED, AWAKE, ALERT AND ORIENTED, WATCHING TV, NO COMPLAINT AT THIS TIME, CALL LIGHT WITHIN REACH, NOTED WITH GOOD APPETITE, NEEDS ATTENDED, IVF INFUSING WELL.
[2019-12-17] MEDS: IPRATROPIUM NEB FS 0.5 MG/2.5 ML AMPUL.NEB NEB SCH ×2 (15:56→20:10)
[2019-12-17 16:00] VITALS: BP 105/77
[2019-12-17] MEDS: MONTELUKAST SODIUM (10MG) 10 MG TABLET PO SCH (17:10)
--- NOTE | 2019-12-17 18:59 | NUR ---
RN MS NOTES PT IN BED, AWAKE, ALERT AND ORIENTED, NO COMPLAINT OF PAIN, NOT IN DISTRESS, CALL LIGHT WITHIN REACH, ASSISTED WITH NEEDS, IV FLUIDS INFUSING WELL, ALL NEEDS ATTENDED.
--- NOTE | 2019-12-17 20:00 | NUR ---
RN OPEN NOTES RECEIVED PATIENT AWAKE IN BED. A/OX2. NO SIGNS OF DISTRESS OR DISCOMFORT. BREATHING EVEN AND UNLABORED. ON 2LPM O2 VIA NC. IV ACCESS IN RFA WITH NS INFUSING, PATENT AND INTACT, NO SIGNS OF REDNESS OR INFILTRATION. BED IN LOW LOCKED POSITION WITH SIDE RAILS X2 CALL LIGHT WITHIN REACH. WILL CONTINUE TO MONITOR.
[2019-12-17] MEDS: SENNOSIDES 8.6 MG TABLET PO SCH (21:21)
[2019-12-17] MEDS: MIRTAZAPINE 15 MG TABLET PO SCH (21:22)
[2019-12-17] MEDS: ATORVASTATIN 40 MG TABLET PO SCH (21:22)
[2019-12-17] MEDS: OLANZAPINE 10 MG TABLET PO SCH (21:22)
[2019-12-17 23:14] VITALS: BP 114/71
[2019-12-18] MEDS: IPRATROPIUM NEB FS 0.5 MG/2.5 ML AMPUL.NEB NEB SCH ×4 (01:21→20:04)
--- NOTE | 2019-12-18 07:10 | NUR ---
RN CLOSING NOTES PATIENT AWAKE IN BED. A/OX3. NO SIGNS OF DISTRESS OR DISCOMFORT. BREATHING EVEN AND UNLABORED. ON 2LPM O2 VIA NC. IV ACCESS IN RFA WITH NS INFUSING, PATENT AND INTACT, NO SIGNS OF REDNESS OR INFILTRATION. ALL NEEDS MET. NO SIGNIFICANT CHANGES THROUGH THE NIGHT. BED IN LOW LOCKED POSITION WITH SIDE RAILS X2 CALL LIGHT WITHIN REACH. ENDORSED TO AM SHIFT FOR EDVIN.
--- NOTE | 2019-12-18 07:14 | NUR ---
MS RN OPENING NOTES RECEIVED PATIENT AWAKE IN BED IN NO ACUTE SIGNS OF DISTRESS. A/O X3-4. ABLE TO MAKE NEEDS KNOWN, DENIES PAIN OR ANY DISCOMFORTS AT THIS TIME. ON O2 VIA NC @ 2LPM, TOLERATING WELL WITH NO SOB NOTED. IV ACCESS ON RFA G#24 INTACT AND PATENT, NO SIGNS OF REDNESS OR INFILTRATION. SAFETY MEASURES IN PLACE: BED IN LOW LOCKED POSITION WITH SIDE RAILS UP X2. CALL LIGHT WITHIN REACH. WILL CONTINUE TO MONITOR.
[2019-12-18 08:00] VITALS: BP 131/86
[2019-12-18] MEDS: clonazePAM 0.5 MG TABLET PO SCH ×2 (08:10→17:15)
[2019-12-18] MEDS: POLYETHYLENE GLYCOL 3350 17 GM POWD.PACK PO SCH (08:10)
[2019-12-18] MEDS: predniSONE 20 MG TABLET PO SCH (08:11)
[2019-12-18] MEDS: CHOLECALCIFEROL 1,000 UNIT TABLET (VIT D3) PO SCH (08:11)
[2019-12-18] MEDS: FLUTICASONE/VILANTEROL 1 EACH BLST.W.DEV IH SCH (08:18)
[2019-12-18] MEDS: ENSURE ENLIVE CHOC 237 ML CAN PO SCH ×3 (08:28→16:52)
[2019-12-18] MEDS: AZITHROMYCIN 250 MG TABLET PO SCH (12:38)
[2019-12-18 16:00] VITALS: BP 102/70
[2019-12-18] MEDS: MONTELUKAST SODIUM (10MG) 10 MG TABLET PO SCH (17:15)
--- NOTE | 2019-12-18 17:46 | NUR ---
MS RN CLOSING NOTES PT IN BED AWAKE, ALERT AND ORIENTED X3. NO CARDIAC OR RESP DISTRESS NOTED. NO SOB NOTED. ABLE TO MAKE NEEDS KNOWN, DENIES PAIN OR ANY DISCOMFORTS AT THIS TIME. ON O2 VIA NC @ 2LPM, TOLERATING WELL WITH NO SOB NOTED. IV ACCESS ON RFA G#24 INTACT AND PATENT, NO SIGNS OF REDNESS OR INFILTRATION. SAFETY MEASURES IN PLACE: BED IN LOW LOCKED POSITION WITH SIDE RAILS UP X2. CALL LIGHT WITHIN REACH. WILL CONTINUE TO MONITOR.
--- NOTE | 2019-12-18 19:26 | NUR ---
MS/RN OPENING NOTES: RECEIVED PATIENT AWAKE IN BED, A/OX2-3. NO SOB NOTED, NO ACUTE SIGNS OF DISTRESS. VERBALLY RESPONSIVE AND ABLE TO MAKE NEEDS KNOWN, DENIES PAIN OR ANY DISCOMFORTS AT THIS TIME. ON O2 VIA NC @ 2LPM, TOLERATING WELL. IV ACCESS ON RFA G#24 INTACT AND PATENT, WITH NS RUNNING AT 75ML/HR. NO SIGNS OF REDNESS OR INFILTRATION. SAFETY MEASURES IN PLACE: BED IN LOW LOCKED POSITION WITH SIDE RAILS UP X2. CALL LIGHT WITHIN REACH. WILL CONTINUE TO MONITOR ACCORDINGLY.
[2019-12-18 20:00] VITALS: BP 103/73
[2019-12-18] MEDS: MIRTAZAPINE 15 MG TABLET PO SCH (21:16)
[2019-12-18] MEDS: ATORVASTATIN 40 MG TABLET PO SCH (21:16)
[2019-12-18] MEDS: SENNOSIDES 8.6 MG TABLET PO SCH (21:16)
[2019-12-18] MEDS: OLANZAPINE 10 MG TABLET PO SCH (21:17)
[2019-12-19] MEDS: IPRATROPIUM NEB FS 0.5 MG/2.5 ML AMPUL.NEB NEB SCH ×5 (01:01→20:18)
[2019-12-19] MEDS: IV NS 0.9% 1,000 ML IV PRN ×2 (02:00→15:51)
--- NOTE | 2019-12-19 06:33 | NUR ---
MS/RN CLOSING NOTES: PATIENT SLEEPING IN BED, REMAINS A/OX2-3. NO SOB NOTED, NO ACUTE SIGNS OF DISTRESS. VERBALLY RESPONSIVE AND ABLE TO MAKE NEEDS KNOWN, DENIES PAIN OR ANY DISCOMFORT AT THIS TIME. ON O2 VIA NC @ 2LPM, TOLERATING WELL. IV ACCESS ON RFA G#24 INTACT AND PATENT, WITH NS RUNNING AT 75ML/HR. NO SIGNS OF REDNESS OR INFILTRATION. ALL MEDS GIVEN ORDERED. ALL NEEDS MET AND RENDERED. SAFETY MEASURES IN PLACE: BED IN LOW LOCKED POSITION WITH SIDE RAILS UP X2. CALL LIGHT WITHIN REACH. WILL ENDORSE TO DAY SHIFT RN FOR EDVIN.
--- NOTE | 2019-12-19 07:59 | NUR ---
MS RN OPENING NOTES PT IN BED AWAKE, ALERT AND ORIENTED X3. NO CARDIAC OR RESP DISTRESS NOTED. NO COMPLAINTS OF PAIN OR DISCOMFORT. NO SOB NOTED. PT IS ABLE TO MAKE NEEDS KNOWN, DENIES PAIN OR ANY DISCOMFORTS AT THIS TIME. ON O2 VIA NC @ 2LPM, TOLERATING WELL WITH NO SOB NOTED. IV ACCESS ON RFA G#24 INTACT AND PATENT, NO SIGNS OF REDNESS OR INFILTRATION. SAFETY MEASURES IN PLACE: BED IN LOW LOCKED POSITION WITH SIDE RAILS UP X2. CALL LIGHT WITHIN REACH. WILL CONTINUE TO MONITOR.
[2019-12-19 08:00] VITALS: BP 123/73
[2019-12-19] MEDS: ENSURE ENLIVE CHOC 237 ML CAN PO SCH ×3 (08:11→16:40)
[2019-12-19] MEDS: FLUTICASONE/VILANTEROL 1 EACH BLST.W.DEV IH SCH (08:11)
[2019-12-19] MEDS: POLYETHYLENE GLYCOL 3350 17 GM POWD.PACK PO SCH (08:11)
[2019-12-19] MEDS: CHOLECALCIFEROL 1,000 UNIT TABLET (VIT D3) PO SCH (08:12)
[2019-12-19] MEDS: clonazePAM 0.5 MG TABLET PO SCH ×2 (08:12→16:41)
[2019-12-19] MEDS: AZITHROMYCIN 250 MG TABLET PO SCH (12:14)
[2019-12-19 16:00] VITALS: BP 112/61
[2019-12-19] MEDS: MONTELUKAST SODIUM (10MG) 10 MG TABLET PO SCH (17:13)
--- NOTE | 2019-12-19 18:16 | NUR ---
MS RN CLOSING NOTES PT IN BED AWAKE, ALERT AND ORIENTED X3. NO CARDIAC OR RESP DISTRESS NOTED. NO COMPLAINTS OF PAIN OR DISCOMFORT. NO SOB NOTED. PT IS ABLE TO MAKE NEEDS KNOWN, DENIES PAIN OR ANY DISCOMFORT AT THIS TIME. ON O2 VIA NC @ 2LPM, TOLERATING WELL WITH NO SOB NOTED. PT HAD X1 BM TODAY. NO S/SX OF DEHYDRATION NOTED. PT OBSERVED DRINKING A LOT OF FLUIDS. IV ACCESS ON RFA G#24 INTACT AND PATENT, NO SIGNS OF REDNESS OR INFILTRATION. SAFETY MEASURES IN PLACE: BED IN LOW LOCKED POSITION WITH SIDE RAILS UP X2. CALL LIGHT WITHIN REACH.
--- NOTE | 2019-12-19 19:40 | NUR ---
MS RN OPENING NOTES PATIENT RESTING IN BED COMFORTABLY; NO SOB; BREATHING EVEN AND UNLABORED; PATIENT TOLERATING ROOM AIR WELL; A/O X2-3; L UA #18 RUNNING NS @ 75ML/HR; IV SITE INTACT AND PATENT; FLUSHING WELL; SAFETY PRECAUTIONS IMPLEMENTED; BED LOCKED IN LOW POSITION; SIDE RAILS X2; CALL LIGHT WITHIN EASY REACH; WILL CONTINUE TO MONITOR
[2019-12-19 20:00] VITALS: BP 100/58
[2019-12-19] MEDS: ATORVASTATIN 40 MG TABLET PO SCH (21:05)
[2019-12-19] MEDS: SENNOSIDES 8.6 MG TABLET PO SCH (21:06)
[2019-12-19] MEDS: MIRTAZAPINE 15 MG TABLET PO SCH (21:06)
[2019-12-19] MEDS: OLANZAPINE 10 MG TABLET PO SCH (21:06)
[2019-12-20] MEDS: IPRATROPIUM NEB FS 0.5 MG/2.5 ML AMPUL.NEB NEB SCH ×4 (01:54→20:28)
[2019-12-20] MEDS: IV NS 0.9% 1,000 ML IV PRN (05:06)
--- NOTE | 2019-12-20 06:31 | NUR ---
MS RN CLOSING NOTES PATIENT RESTING COMFORTABLY IN BED; A/O X2-3; NO SOB; NO S/S OF ACUTE RESPIRATORY DISTRESS NOTED; BREATHING EVEN AND UNLABORED; L UA #18 INTACT AND PATENT, RUNNING NS @ 75ML/HR; PATIENT TOLERATING IVF WELL; ALL NEEDS RENDERED; SAFETY PRECAUTIONS IMPLEMENTED; BED LOCKED IN LOW POSITION; SIDE RAILS X2; CALL LIGHT WITHIN REACH; WILL ENDORSE EDVIN TO ONCOMING SHIFT
[2019-12-20 08:00] VITALS: BP 141/80
--- NOTE | 2019-12-20 08:00 | NUR ---
MS RN OPENING NOTE PT IN BED AWAKE, ALERT AND ORIENTED X3. NO CARDIAC OR RESP DISTRESS NOTED. NO COMPLAINTS OF PAIN OR DISCOMFORT. NO SOB NOTED. PT IS ABLE TO MAKE NEEDS KNOWN, NO COMPLAINTS OF PAIN OR DISCOMFORT. ON O2 VIA NC @ 2LPM, TOLERATING WELL WITH NO SOB NOTED. IV ACCESS ON RFA G#24 INTACT AND PATENT, NO SIGNS OF REDNESS OR INFILTRATION. SAFETY MEASURES IN PLACE: BED IN LOW LOCKED POSITION WITH SIDE RAILS UP X2. CALL LIGHT WITHIN REACH. WILL CONTINUE TO MONITOR.
[2019-12-20] MEDS: CHOLECALCIFEROL 1,000 UNIT TABLET (VIT D3) PO SCH (08:17)
[2019-12-20] MEDS: clonazePAM 0.5 MG TABLET PO SCH ×2 (08:17→17:10)
[2019-12-20] MEDS: POLYETHYLENE GLYCOL 3350 17 GM POWD.PACK PO SCH (08:17)
[2019-12-20] MEDS: ENSURE ENLIVE CHOC 237 ML CAN PO SCH ×3 (08:18→17:20)
[2019-12-20] MEDS: FLUTICASONE/VILANTEROL 1 EACH BLST.W.DEV IH SCH (08:18)
[2019-12-20] MEDS: AZITHROMYCIN 250 MG TABLET PO SCH (11:52)
[2019-12-20 16:00] VITALS: BP 110/58
[2019-12-20] MEDS: MONTELUKAST SODIUM (10MG) 10 MG TABLET PO SCH (17:10)
--- NOTE | 2019-12-20 18:10 | NUR ---
MS RN CLOSING NOTES PT IN BED AWAKE, ALERT AND ORIENTED X3. NO CARDIAC OR RESP DISTRESS NOTED. NO COMPLAINTS OF PAIN OR DISCOMFORT. NO SOB NOTED. PT IS ABLE TO MAKE NEEDS KNOWN, DENIES PAIN OR ANY DISCOMFORT AT THIS TIME. ON O2 VIA NC @ 2LPM, TOLERATING WELL WITH NO SOB NOTED. PT IS WELL HYDRATED. PT OBSERVED DRINKING A LOT OF FLUIDS. IV ACCESS ON RFA G#24 INTACT AND PATENT, NO SIGNS OF REDNESS OR INFILTRATION NOTED. SAFETY MEASURES IN PLACE: BED IN LOW LOCKED POSITION WITH SIDE RAILS UP X2. CALL LIGHT WITHIN REACH.
--- NOTE | 2019-12-20 19:54 | NUR ---
MS RN OPENING NOTES PATIENT AWAKE, A/O 2-3; RESTING IN BED COMFORTABLY; PATIENT ON 2L NC, TOLERATING WELL, NO SOB OR S/S OF ACUTE RESPIRATORY DISTRESS NOTED; L UA #18 RUNNING NS @ 75ML/HR; TOLERATING IVF WELL; SAFETY PRECAUTIONS IMPLEMENTED; BED LOCKED IN LOW POSITION; SIDE RAILS X2' CALL LIGHT WITHIN REACH; WILL CONTINUE TO MONITOR
[2019-12-20 20:00] VITALS: BP 128/69
[2019-12-20] MEDS: SENNOSIDES 8.6 MG TABLET PO SCH (21:03)
[2019-12-20] MEDS: ATORVASTATIN 40 MG TABLET PO SCH (21:04)
[2019-12-20] MEDS: OLANZAPINE 10 MG TABLET PO SCH (21:04)
[2019-12-20] MEDS: MIRTAZAPINE 15 MG TABLET PO SCH (21:04)
[2019-12-21] MEDS: IPRATROPIUM NEB FS 0.5 MG/2.5 ML AMPUL.NEB NEB SCH ×3 (01:56→13:05)
--- NOTE | 2019-12-21 06:30 | NUR ---
MS RN CLOSING NOTES PATIENT AWAKE, A/O X2-3; BREATHING EVEN AND UNLABORED; NO SOB NOTED; PATIENT ON 2L NC, TOLERATING WELL; ALL NEEDS RENDERED; L UA #18 RUNNING NS @ 75ML/HR; SAFETY PRECAUTIONS IMPLEMENTED; BED LOCKED IN LOW POSITION; SIDE RAILS X2; CALL LIGHT WITHIN REACH; WILL ENDORSE EDVIN TO ONCOMING SHIFT
[2019-12-21 07:49] VITALS: BP 131/76
--- NOTE | 2019-12-21 08:00 | NUR ---
RN NOTES RECEIVED PATIENT IN THE BED A/O X3, ON O2-2L NC. PATIENT REFUSED PAIN, REDIRECTABLE. ADMINISTERED SCHEDULED MEDICATION. PATIENT SELF CARE, USING BED SIDE COMMODE. V/S STABLE. NEEDS ATTENDED AND ANTICIPATED. CALL LIGHT WITHIN TO REACH, IV ACCESS ON LEFT UA INTACT INFUSIN NS AT 75 ML/HR INTACT. CONTINUED MONITORING.
[2019-12-21] MEDS: ENSURE ENLIVE CHOC 237 ML CAN PO SCH ×3 (08:50→16:32)
[2019-12-21] MEDS: CHOLECALCIFEROL 1,000 UNIT TABLET (VIT D3) PO SCH (08:51)
[2019-12-21] MEDS: POLYETHYLENE GLYCOL 3350 17 GM POWD.PACK PO SCH (08:51)
[2019-12-21] MEDS: clonazePAM 0.5 MG TABLET PO SCH ×2 (08:51→16:31)
[2019-12-21] MEDS: FLUTICASONE/VILANTEROL 1 EACH BLST.W.DEV IH SCH (08:52)
[2019-12-21] MEDS: AZITHROMYCIN 250 MG TABLET PO SCH (12:03)
--- NOTE | 2019-12-21 14:00 | NUR ---
RN NOTES PER HOSPITALIST PATIENT WILL DISCHARGE TO THE SNF.
[2019-12-21] MEDS: MONTELUKAST SODIUM (10MG) 10 MG TABLET PO SCH (16:32)
--- NOTE | 2019-12-21 16:45 | NUR ---
HOTEL OFFICE MANAGER NOTES PATIENT DISCHARGE AT THIS TIME GOING SNF. PATIENT A/O X3, ON O2-2L NC, V/S STABLE. NO ACUTE SOB, REDIRECTABLE, REFUSED PAIN. MED RECONCILIATION AND DISCHARGE ORDER REVIEWED AND EXPLAINED TO. REPORT GIVEN SNF RN. RN VERBALIZED UNDERSTATING. PATIENT BELONGING WITH HER. PATIENT SIGN PAPERWORK, ADMINISTERED 1700 MEDICATION. PATIENT SIGN PAPERWORK. PATIENT REGISTERED DIETETIC TECHNICIAN BY AMBULANCE.
== END 2019-12-21 16:40 | DRG 202 ==
LOC: ER 08:16 → MED 10:15
PROVIDERS: ADMIT Internal Medicine; ATTEND Internal Medicine
DX: J20.9 Acute bronchitis, unspecified (principal); N17.9 Acute kidney failure, unspecified; F20.0 Paranoid schizophrenia; G93.40 Encephalopathy, unspecified; Z68.1 Body mass index [BMI] 19.9 or less, adult; J44.1 Chronic obstructive pulmonary disease with (acute) exacerbation; J44.0 Chronic obstructive pulmonary disease with (acute) lower respiratory infection; F29 Unspecified psychosis not due to a substance or known physiological condition; I10 Essential (primary) hypertension; Z87.891 Personal history of nicotine dependence; G47.00 Insomnia, unspecified; Z91.19 Patient's noncompliance with other medical treatment and regimen; Z99.81 Dependence on supplemental oxygen; Z79.82 Long term (current) use of aspirin; R63.4 Abnormal weight loss; Z88.0 Allergy status to penicillin; E86.0 Dehydration
CPT/HCPCS: 36415; 71045-TC; 80048-TC; 80053-TC; 80076-TC; 83605-TC; 84484-TC; 85025-TC; 87040-TC; 87081-TC; 94799-TC; G0378; J2930; J7030

== ENCOUNTER 2020-02-24 13:22 | Inpatient (IN) | payer MEDICARE, OTHER ==
[~2020-02-24] VITALS: Ht 165.1 cm; Wt 52.2 kg
[~2020-02-24 13:22] MED LIST changes: +ACET-868 PO; +ALBU2.5V38 IH; -ASPI-1169 PO; -BENA10TA74 PO; +BENA20TA78 PO; +BISA10SU11 RC; +CHOL100040 PEG; -DOCU-141 PO; +FLUT1DIS5 IH; -HALO5TAB PO; +MAGN400O6 PO; +MONT10TA22 PO; +POLY17PO4 PO; +SENN-261 PO; +TIOT18CA3 IH
[2020-02-24] MEDS ORDERED: methylPREDNISolone SOD SUCC 125 MG/2ML VIAL IV ONE (13:30)
[2020-02-24] MEDS ORDERED: ALBUTEROL SULFATE INH 18 GM HFA.AER.AD IH PRN ×2 (13:30→18:30)
[2020-02-24] MEDS ORDERED: methylPREDNISolone SOD SUCC 125 MG/2ML VIAL ONE (13:36)
[2020-02-24 13:44] LABS: BASOPHILS % (AUTO) 0.5 % (0.0-2.0); EOSINOPHILS % (AUTO) 0.2 % (0.0-6.0); HEMATOCRIT 33 % (33-45); LYMPHOCYTES # (AUTO) 0.4 /CMM (0.8-4.8); LYMPHOCYTES % (AUTO) 15.4 % (20.0-44.0); MEAN CORPUSCULAR HGB CONC 33 g/dl (31.0-36.0); MEAN CORPUSCULAR VOLUME 89 fL (82-100); MONOCYTES # (AUTO) 0.4 /CMM (0.1-1.30); MONOCYTES % (AUTO) 15.5 % (2.0-12.0); NEUTROPHILS # (AUTO) 1.9 /CMM (1.8-8.9); NEUTROPHILS % (AUTO) 68.4 % (43.0-81.0); PLATELET COUNT (AUTO) 219 /CMM (150-450); RED BLOOD CELL COUNT(AUTO) 3.72 MIL/uL (4.0-5.2); WHITE BLOOD COUNT (AUTO) 2.8 K/uL (4.3-11.0)
--- NOTE | 2020-02-24 13:45 | NUR ---
ELEN FROM SNF. TO ER BED 7. AAOX4. IN MILD RESP DISTRESS, BREATHING RAPID AND SHALLOW. ON O2 VIA NC @ 2LPM W/ O2 SAT 98%. SENT IN BY PMD FOR COPD EXACERBATION. PT REPORTED THAT SHE WAS COVID POSITIVE 1 MONTH AGO AND NOT FEELING BETTER. NOTED WHEEZING ON R LUNG AND DIMINISHED ON L LUNG. WAS AT BEDSIDE FOR EVAL. ORDERS RECEIVED , NOTED AND CARRIED OUT. IV LINE ON LFA 18G. BLOOD DRAWNA ND GIVEN TO SENIOR SALES ENGINEER AT BEDSIDE. PT ON MONITOR.
--- NOTE | 2020-02-24 13:49 | NUR ---
XRAY AT5 BEDSIDE
[2020-02-24 13:50] LABS: CALCIUM, SERUM 8.6 mg/dL (8.5-10.1); CARBON DIOXIDE 31 mmol/L (21-32); CHLORIDE 93 mmol/L (98-107); CREATININE 0.5 mg/dL (0.6-1.3); GLUCOSE 132 mg/dL (74-106); POTASSIUM 3.1 mmol/L (3.5-5.1); SODIUM SERUM 130 mmol/L (136-145); UREA NITROGEN, BLOOD 7 mg/dL (7-18)
[2020-02-24 14:02] LABS: ALANINE AMINOTRANSFERASE 123 U/L (12-78); ALBUMIN 2.7 g/dL (3.4-5.0); ALKALINE PHOSPHATASE 78 U/L (46-116); ASPARTATE AMINOTRANSFERASE 105 U/L (15-37); B-TYPE NATRIURETIC PEPTIDE 253 PG/ML (0-125); BILIRUBIN,DIRECT 0.1 mg/dL (0.0-0.2); BILIRUBIN,TOTAL 0.3 mg/dL (0.2-1.0); TOTAL PROTEIN, SERUM 6.1 g/dL (6.4-8.2)
[2020-02-24] MEDS ORDERED: IV NS 0.9% 500 ML BAG IV ONE (15:00)
--- NOTE | 2020-02-24 15:21 | NUR ---
CALLED NURSING SUP FOR TELE BED.
[2020-02-24] MEDS ORDERED: MIRT15TA7 PO (15:50)
[2020-02-24] MEDS ORDERED: SODI100037 PO (15:50)
[2020-02-24] MEDS ORDERED: NA P133E RC (15:50)
[2020-02-24] MEDS ORDERED: UMEC1BLS IH (15:50)
[2020-02-24 16:26] LABS: C-REACTIVE PROTEIN 13.4 mg/dL (0.0-0.9)
--- NOTE | 2020-02-24 16:41 | NUR ---
NURSING SUP GAVE [phone].
--- NOTE | 2020-02-24 16:54 | NUR ---
REPORT GIVEN TO SKINNY SHAH FOR EDVIN.
[2020-02-24 17:00] VITALS: BP 112/71
--- NOTE | 2020-02-24 17:00 | NUR ---
BULL RIDER NOTES RECEIVED PT FROM E.R. STAFF VIA WHEELCHAIR, ASSISTED TO BED, MADE COMFORTABLE, ROOM SET UP ORIENTATION PROVIDED TO PT. VERBALIZED UNDERSTANDING, PLACED ON 02 AT 2LPM VIA N/C, VITALS TAKEN AND RECORDED, DENIES PAIN, NOT IN DISTRESS, NO COMPLAINT OF PAIN, RECEIVED ADMITTING ORDERS FROM DR. COOPER VIA FACETIME WITH PATIENT, NOTED AND CARRIED OUT, ISOLATION PRECAUTIONS OBSERVED.
--- NOTE | 2020-02-24 17:00 | NUR ---
PT BEING TRANSPORTED TO UNIT ON WHEELCHAIR W/ RN AT BEDSIDE. NAD NOTED. PT IS IN STABLE CONDITION.
[2020-02-24] MEDS ORDERED: ALBUTEROL SULFATE INH 18 GM HFA.AER.AD NEB PRN (18:30)
[2020-02-24] MEDS ORDERED: ACETAMINOPHEN 325 MG TABLET PO PRN (18:30)
[2020-02-24] MEDS ORDERED: NA PHOS,M-B/NA PHOS,DI-BA 1 EA ENEMA RC PRN (18:30)
[2020-02-24] MEDS ORDERED: BISACODYL SUPP (10 MG) 10 MG/SUPP.RECT SUPP.RECT RC PRN (18:30)
[2020-02-24] MEDS ORDERED: MAGNESIUM HYDROXIDE 30 ML UDC PO PRN (18:30)
[2020-02-24] MEDS: POTASSIUM CHLORIDE 20 MEQ TAB.PRT.SR PO SCH (18:35)
[2020-02-24] MEDS: ENOXAPARIN SODIUM 40 MG/0.4 ML DISP.SYRIN SQ SCH (18:36)
--- NOTE | 2020-02-24 19:00 | NUR ---
ENTRY DRIVER OPERATOR NOTES PT IN BED, RESTING, NO COMPLAINT OF PAIN OR ANY DISCOMFORT, DINNER SERVED, PM MEDS GIVEN, ALL NEEDS ATTENDED, KEPT WARM AND COMFORTABLE IN BED.
--- NOTE | 2020-02-24 19:30 | NUR ---
TELE/RN OPENING NOTES: RECEIVED A/OX4. VERBALLY RESPONSIVE AND ABLE TO MAKE NEEDS KNOWN. PLACED ON 02 AT 2LPM VIA N/C, NO SOB NO DISTRESS NOTED AT THIS TIME. TELE READING OF SR PVC HR OF 76. NO COMPLAINT OF PAIN, ISOLATION PRECAUTIONS OBSERVED. WILL CONTINUE TO MONITOR ACCORDINGLY
[2020-02-24 20:00] VITALS: BP 107/67
[2020-02-24 20:42] VITALS: BP 107/67
--- NOTE | 2020-02-24 21:10 | NUR ---
TELE/RN OPENING NOTES: RECEIVED A/OX4. VERBALLY RESPONSIVE AND ABLE TO MAKE NEEDS KNOWN. PLACED ON 02 AT 2LPM VIA N/C, NO SOB NO DISTRESS NOTED AT THIS TIME. NO COMPLAINT OF PAIN, ISOLATION PRECAUTIONS OBSERVED. WILL CONTINUE TO MONITOR ACCORDINGY
[2020-02-24] MEDS: FLUTICASONE/VILANTEROL 1 EACH BLST.W.DEV IH SCH (21:46)
[2020-02-24] MEDS: clonazePAM 0.5 MG TABLET PO SCH (21:47)
[2020-02-24] MEDS: MIRTAZAPINE 15 MG TABLET PO SCH (21:47)
[2020-02-24] MEDS: SENNOSIDES 8.6 MG TABLET PO SCH (21:48)
[2020-02-24] MEDS: SODIUM CHLORIDE 1000 MG TABLET PO SCH (21:48)
[2020-02-24] MEDS: OLANZAPINE 10 MG TABLET PO SCH (21:48)
[2020-02-25] VITALS (7 sets, daily range): BP systolic 103–178; BP diastolic 67–83
[2020-02-25 06:48] LABS: BASOPHILS % (AUTO) 0.2 % (0.0-2.0); EOSINOPHILS % (AUTO) 0.1 % (0.0-6.0); HEMATOCRIT 35 % (33-45); HEMOGLOBIN 11.5 g/dL (11.5-14.8); LYMPHOCYTES # (AUTO) 0.3 /CMM (0.8-4.8); LYMPHOCYTES % (AUTO) 29.8 % (20.0-44.0); MEAN CORPUSCULAR HGB CONC 33 g/dl (31.0-36.0); MEAN CORPUSCULAR VOLUME 88 fL (82-100); MONOCYTES # (AUTO) 0.2 /CMM (0.1-1.30); MONOCYTES % (AUTO) 18.6 % (2.0-12.0); NEUTROPHILS # (AUTO) 0.4 /CMM (1.8-8.9); NEUTROPHILS % (AUTO) 51.3 % (43.0-81.0); PLATELET COUNT (AUTO) 225 /CMM (150-450); RED BLOOD CELL COUNT(AUTO) 3.92 MIL/uL (4.0-5.2)
[2020-02-25 06:57] LABS: WHITE BLOOD COUNT (AUTO) 0.9 K/uL (4.3-11.0)
--- NOTE | 2020-02-25 07:08 | NUR ---
TELE/RN NOTES: LAB CALLED AT 0654. WBC 0.9 CRITICAL LAB RESULT. INFORMED TAPAN ABBOTT, AND DR. COOPER. GARETH ORDERED FOR REVERSE ISOLATION. INFORMED DR. COOPER FOR FURTHER OTHERS, WAITING ON REPLY. WILL ENDORSE TO MORNING SHIFT.
--- NOTE | 2020-02-25 07:30 | NUR ---
NUCLEAR MEDICINE SPECIALIST NOTES PT IN BED, ASLEEP, EASY TO AROUSE, ALERT AND ORIENTED, DENIES PAIN, RESPIRATIONS NORMAL, CALL LIGHT WITHIN REACH, DR. COOPER INFORMED OF LOW WBC VALUE OF 0.9, NO NEW ORDER.
[2020-02-25 07:31] LABS: ALBUMIN 2.9 g/dL (3.4-5.0); BILIRUBIN,TOTAL 0.2 mg/dL (0.2-1.0); CREATININE 0.5 mg/dL (0.6-1.3); POTASSIUM 3.3 mmol/L (3.5-5.1); TOTAL PROTEIN, SERUM 6.6 g/dL (6.4-8.2)
--- NOTE | 2020-02-25 07:33 | NUR ---
TELE/RN CLOSING NOTES: PT. REMAINS A/OX4. VERBALLY RESPONSIVE AND ABLE TO MAKE NEEDS KNOWN. ON 02 AT 2LPM VIA N/C, NO SOB NO DISTRESS NOTED AT THIS TIME. TELE READING OF SR WITH PVC HR OF 73. NO COMPLAINT OF PAIN, REVERSE ISOLATION PRECAUTIONS OBSERVEDD AND ORDERED BY OMAR ABBOTT. CRITICAL LAB VALUE DOCUMENTED. OMAR ABBOTT MADE AWARE, DR. COOPER MADE AWARE, DOESN'T WANT TO ORDER ID CONSULT FOR NOW. WILL FOLLOW UP. WOUND CONSULT ORDERED FOR SACRAL WOUND. ALL DUE MEDS GIVEN ORDERED. TOLERATED WELL. ALL NEEDS MET AND RENDERED. KEPT PT. WARM AND COMFORTABLE ALL NIGHT. SAFETY MEASURES KEPT IN PLACE. CALL LIGHT WITHIN REACH. BED IN LOW LOCKED POSITION. WILL ENDORSE TO DAY SHIFT FOR EDVIN.
[2020-02-25] MEDS: clonazePAM 0.5 MG TABLET PO SCH ×2 (08:36→21:13)
[2020-02-25] MEDS: POTASSIUM CHLORIDE 20 MEQ TAB.PRT.SR PO SCH (08:36)
[2020-02-25] MEDS: POLYETHYLENE GLYCOL 3350 17 GM POWD.PACK PO SCH (08:36)
[2020-02-25] MEDS: FLUTICASONE/VILANTEROL 1 EACH BLST.W.DEV IH SCH ×2 (08:42→21:04)
[2020-02-25] MEDS: AMLODIPINE BESYLATE 2.5 MG TABLET PO SCH (08:50)
[2020-02-25] MEDS: BENAZEPRIL HCL 20 MG TABLET PO SCH (08:50)
[2020-02-25] MEDS: SODIUM CHLORIDE 1000 MG TABLET PO SCH ×3 (09:00→21:13)
[2020-02-25] MEDS: CHOLECALCIFEROL 1,000 UNIT TABLET (VIT D3) PO SCH (09:18)
[2020-02-25 10:30] LABS: BAND % (MANUAL) 1 % (0.0-5.0); LYMPHOCYTES % (MANUAL) 27 % (16-48); MONOCYTES % (MANUAL) 20 % (0-11.0); NEUTROPHILS % (MANUAL) 52 (42-76)
--- NOTE | 2020-02-25 13:00 | NUR ---
TOURIST AGENT NOTES PT IN BED, AWAKE, ALERT AND ORIENTED, DENIES PAIN, NOT IN DISTRESS, RESPIRATIONS NORMAL, CALL LIGHT WITHIN REACH, TOLERATES CURRENT DIET, ABLE TO AMBULATE TO THE BATHROOM WITH SLOW AND STEADY GAIT, NEEDS ATTENDED.
--- NOTE | 2020-02-25 16:56 | NUR ---
CONSTRUCTION CARPENTER NOTES PT IN BED, AWAKE, ALERT AND ORIENTED, NO COMPLAINT AT THIS TIME, NOT IN DISTRESS, ON O2 AT 2LPM VIA N/C, PT HAD TELE FACETIME WITH DR. COOPER, PLAN OF CARE DISCUSSED WITH PT, VERBALIZED UNDERSTANDING, NO NEW ORDER FROM MD.
--- NOTE | 2020-02-25 18:10 | NUR ---
BOWLING BALL GRADER AND MARKER NOTES PT IN BED, AWAKE, ALERT AND ORIENTED, EATING DINNER, NO COMPLANT AT THIS TIME, NOT IN DISTRESS, ON CONTINUOUS O2 AT 2LPM VIA NASAL CANULA, NO COMPLAINT OF SOB, ASSISTED WITH NEEDS, KEPT COMFORTABLE.
--- NOTE | 2020-02-25 19:55 | NUR ---
PAN RECLAIM PROCESSOR NOTE: PATIENT RESTING IN BED, NO ACUTE DISTRESS NOTED. BREATHING EVEN AND UNLABORED, NO SOB NOTED. IV TO RFA IN PLACE. TELE READING SR 102. BED LOCKED AND IN LOWEST POSITION, CALL LIGHT IN REACH. WILL CONTINUE TO MONITOR.
[2020-02-25] MEDS: SENNOSIDES 8.6 MG TABLET PO SCH (21:13)
[2020-02-25] MEDS: MONTELUKAST SODIUM (10MG) 10 MG TABLET PO SCH (21:13)
[2020-02-25] MEDS: OLANZAPINE 10 MG TABLET PO SCH (21:13)
[2020-02-25] MEDS: ATORVASTATIN 40 MG TABLET PO SCH (21:14)
[2020-02-25] MEDS: MIRTAZAPINE 15 MG TABLET PO SCH (21:14)
[2020-02-25] MEDS: ENOXAPARIN SODIUM 40 MG/0.4 ML DISP.SYRIN SQ SCH (21:15)
--- NOTE | 2020-02-25 22:45 | NUR ---
ENTREPRENEURIAL FINANCE PROFESSOR NOTE: PATIENT NOTED WITH FEVER OF 102.3, TACHY 115, BP ELEVATED AT 178/83. TYLENOL 650MG ORAL GIVEN PER MD ORDER. VITAL SIGNS NOW STABLE AND TEMPERATURE DECREASING. COOLING MEASURES PROVIDED. 155/80, HR 101, RESPIRATIONS 20, 100.0 TEMP, O2 SAT 95%. WILL CONTINUE TO MONITOR.
[2020-02-26] VITALS (7 sets, daily range): BP systolic 107–139; BP diastolic 69–79
--- NOTE | 2020-02-26 06:05 | NUR ---
STATIC BALANCER NOTE: PATIENT RESTING IN BED, NO ACUTE DISTRESS NOTED. BREATHING EVEN AND UNLABORED, NO SOB NOTED. IV TO RFA IN PLACE. TELE READING SR 82. BED LOCKED AND IN LOWEST POSITION, CALL LIGHT IN REACH. WILL ENDORSE TO DAY NURSE TO CONTINUE WITH PLAN OF CARE.
--- NOTE | 2020-02-26 07:16 | NUR ---
RN NOTE RECEIVED PATIENT RESTING IN BED, NO ACUTE DISTRESS NOTED AT THIS TIME. IV TO RFA IN PLACE, PATENT AND INTACT. SAFETY MEASURES IN PLACE, BED LOCKED AND IN LOWEST POSITION, CALL LIGHT IN REACH. WILL CONTINUE TO MONITOR.
[2020-02-26] MEDS: SODIUM CHLORIDE 1000 MG TABLET PO SCH ×3 (09:07→22:24)
[2020-02-26] MEDS: FLUTICASONE/VILANTEROL 1 EACH BLST.W.DEV IH SCH ×2 (09:08→21:00)
[2020-02-26] MEDS: BENAZEPRIL HCL 20 MG TABLET PO SCH (09:09)
[2020-02-26] MEDS: POTASSIUM CHLORIDE 20 MEQ TAB.PRT.SR PO SCH (09:09)
[2020-02-26] MEDS: CHOLECALCIFEROL 1,000 UNIT TABLET (VIT D3) PO SCH (09:10)
[2020-02-26] MEDS: clonazePAM 0.5 MG TABLET PO SCH ×2 (09:11→22:24)
[2020-02-26] MEDS: POLYETHYLENE GLYCOL 3350 17 GM POWD.PACK PO SCH (09:11)
[2020-02-26] MEDS: AMLODIPINE BESYLATE 2.5 MG TABLET PO SCH (09:11)
--- NOTE | 2020-02-26 18:42 | NUR ---
RN NOTE PATIENT RESTING IN BED, NO ACUTE DISTRESS NOTED THROUGHOUT THE SHIFT. IV TO RFA IN PLACE, PATENT AND INTACT. SAFETY MEASURES IN PLACE, BED LOCKED AND IN LOWEST POSITION, CALL LIGHT IN REACH. WILL ENDORSE TO END FRAZER NURSE FOR EDVIN.
--- NOTE | 2020-02-26 19:45 | NUR ---
RN OPENING NOTES RECEIVED REPORT FROM DAYSHIFT RN KAYA. FOUND Pt ASLEEP, RESTING IN BED, EASILY AWAKENED BY NAME; NO S/S OF ACUTE DISTRESS OR SOB NOTED. PER REPORT, Pt IS A/OX4, VERBAL, ABLE TO MAKE NEEDS KNOWN, BUT HAS SOME DELAYED SPEECH. ON TELE MONITOR WITH TELE READING SR 91. IV ACCESS ON LFA #18G, SL. SAFETY MEASURES IN PLACE. BED LOW, LOCKED, HOB ELEVATED, SIDE RAILS UP, CALL LIGHT AND BEDSIDE TABLE WITHIN REACH. BED ALARM ON. WILL CONTINUE TO MONITOR Pt's CONDITION AND SAFETY THROUGHOUT THE NIGHT.
[2020-02-26] MEDS: ATORVASTATIN 40 MG TABLET PO SCH (22:24)
[2020-02-26] MEDS: MIRTAZAPINE 15 MG TABLET PO SCH (22:25)
[2020-02-26] MEDS: SENNOSIDES 8.6 MG TABLET PO SCH (22:25)
[2020-02-26] MEDS: MONTELUKAST SODIUM (10MG) 10 MG TABLET PO SCH (22:25)
[2020-02-26] MEDS: OLANZAPINE 10 MG TABLET PO SCH (22:25)
[2020-02-26] MEDS: ENOXAPARIN SODIUM 40 MG/0.4 ML DISP.SYRIN SQ SCH (22:31)
[2020-02-27] VITALS (11 sets, daily range): BP systolic 91–124; BP diastolic 51–81
--- NOTE | 2020-02-27 06:22 | NUR ---
RN CLOSING NOTES NO SIGNIFICANT CHANGES IN Pt's CONDITION. NO S/S OF ACUTE DISTRESS OR SOB NOTED DURING THE NIGHT. Pt IS RESTING COMFORTABLY IN BED. SAFETY MEASURES IN PLACE. BED LOW, LOCKED, HOB ELEVATED, SIDE RAILS UP, CALL LIGHT AND BEDSIDE TABLE WITHIN REACH. BED ALARM ON. WILL ENDORSE TO DAYSHIFT RN FOR Pt's EDVIN. Addendum: 02/27/20 at 0623 by JOHNY CURIEL RN TELE READING SR 76.
--- NOTE | 2020-02-27 07:30 | NUR ---
RN OPENING NOTE Patient is resting in bed, A/O x3, showing no signs of acute distress or SOB, saturating 95% on 3L NC. Patient has no complaints of pain at this time. IV line in the LFA #18g is clean and intact s/l. Tele monitor SR 89. Bed is in lowest position, side rails x3 in upright position, call light is within reach and patient is aware of how to call for assistance when needed. FAll, safety and aspiration precautions enforced. Will continue with plan of care.
[2020-02-27 07:55] LABS: BASOPHILS % (AUTO) 0.4 % (0.0-2.0); EOSINOPHILS % (AUTO) 0.3 % (0.0-6.0); HEMATOCRIT 34 % (33-45); HEMOGLOBIN 11.3 g/dL (11.5-14.8); LYMPHOCYTES # (AUTO) 0.8 /CMM (0.8-4.8); LYMPHOCYTES % (AUTO) 23.1 % (20.0-44.0); MEAN CORPUSCULAR HGB CONC 34 g/dl (31.0-36.0); MEAN CORPUSCULAR VOLUME 88 fL (82-100); MONOCYTES # (AUTO) 0.5 /CMM (0.1-1.30); MONOCYTES % (AUTO) 14.8 % (2.0-12.0); NEUTROPHILS # (AUTO) 2.1 /CMM (1.8-8.9); NEUTROPHILS % (AUTO) 61.4 % (43.0-81.0); PLATELET COUNT (AUTO) 304 /CMM (150-450); RED BLOOD CELL COUNT(AUTO) 3.84 MIL/uL (4.0-5.2); WHITE BLOOD COUNT (AUTO) 3.5 K/uL (4.3-11.0)
[2020-02-27 07:56] LABS: CALCIUM, SERUM 8.8 mg/dL (8.5-10.1); CREATININE 0.5 mg/dL (0.6-1.3); POTASSIUM 4.4 mmol/L (3.5-5.1)
[2020-02-27] MEDS: POTASSIUM CHLORIDE 20 MEQ TAB.PRT.SR PO SCH (08:16)
[2020-02-27] MEDS: SODIUM CHLORIDE 1000 MG TABLET PO SCH ×3 (08:16→21:26)
[2020-02-27] MEDS: POLYETHYLENE GLYCOL 3350 17 GM POWD.PACK PO SCH (08:16)
[2020-02-27] MEDS: CHOLECALCIFEROL 1,000 UNIT TABLET (VIT D3) PO SCH (08:16)
[2020-02-27] MEDS: clonazePAM 0.5 MG TABLET PO SCH ×2 (08:16→21:24)
[2020-02-27] MEDS: AMLODIPINE BESYLATE 2.5 MG TABLET PO SCH (08:28)
[2020-02-27] MEDS: BENAZEPRIL HCL 20 MG TABLET PO SCH (08:28)
[2020-02-27] MEDS: FLUTICASONE/VILANTEROL 1 EACH BLST.W.DEV IH SCH ×2 (08:28→21:40)
--- NOTE | 2020-02-27 18:39 | NUR ---
RN CLOSING NOTE Patient is resting in bed, A/O x3, showing no signs of acute distress or SOB, saturating 95% on 3L NC. Patient has no complaints of pain during my shift. IV line in the LFA #18g is clean and intact s/l. Tele monitor SR 80s-90s. Patient is independent, ambulatory and has BRP. No BM this shift. All patient needs met, all due medications given. Patient kept clean and dry throughout shift, wound dressing changed. Bed is in lowest position, side rails x3 in upright position, call light is within reach and patient is aware of how to call for assistance when needed. FAll, safety and aspiration precautions enforced. Will endorse to second shift supervisor.
--- NOTE | 2020-02-27 19:05 | NUR ---
TELE/RN OPENING NOTES: RECEIVED AWAKE AND RESTING IN BED, VERBALLY RESPONSIVE AND ABLE TO MAKE NEEDS KNOWN/ NO S/S OF ACUTE DISTRESS OR SOB NOTED. PER REPORT, Pt IS A/OX4. ON 3L OF OXYGEN VIA NC SATURATING AT 95%. NO C/O OF PAIN AT THIS TIME. ON TELE MONITOR WITH TELE READING SR 85. IV ACCESS ON LFA #18G, SL. SAFETY MEASURES IN PLACE. BED LOW, LOCKED, HOB ELEVATED, SIDE RAILS UP, CALL LIGHT AND BEDSIDE TABLE WITHIN REACH. BED ALARM ON. PROPER ISOLATION PRECAUTION FOR COVID 19 MAINTAINED. WILL CONTINUE TO MONITOR Pt's CONDITION AND SAFETY THROUGHOUT THE NIGHT.
[2020-02-27] MEDS: ATORVASTATIN 40 MG TABLET PO SCH (21:25)
[2020-02-27] MEDS: SENNOSIDES 8.6 MG TABLET PO SCH (21:25)
[2020-02-27] MEDS: MONTELUKAST SODIUM (10MG) 10 MG TABLET PO SCH (21:25)
[2020-02-27] MEDS: MIRTAZAPINE 15 MG TABLET PO SCH (21:26)
[2020-02-27] MEDS: OLANZAPINE 10 MG TABLET PO SCH (21:26)
[2020-02-27] MEDS: ENOXAPARIN SODIUM 40 MG/0.4 ML DISP.SYRIN SQ SCH (21:32)
[2020-02-28] VITALS (7 sets, daily range): BP systolic 104–118; BP diastolic 59–81
--- NOTE | 2020-02-28 07:30 | NUR ---
RN OPENING NOTE Patient is resting in bed, A/O x3, showing no signs of acute distress or SOB, saturating 95% on 3L NC. Patient has no complaints of pain at this time. IV line in the LFA #18g is clean and intact s/l. Tele monitor SR 76. Bed is in lowest position, side rails x3 in upright position, call light is within reach and patient is aware of how to call for assistance when needed. FAa, safety and aspiration precautions enforced. Will continue with plan of care.
--- NOTE | 2020-02-28 07:35 | NUR ---
TELE/RN CLOSING NOTES: NO SIGNIFICANT CHANGES IN Pt's CONDITION. REMAINS A/OX4. NO S/S OF ACUTE DISTRESS OR SOB NOTED DURING THE NIGHT. Pt IS RESTING COMFORTABLY IN BED. SAFETY MEASURES IN PLACE. BED LOW, LOCKED, HOB ELEVATED, SIDE RAILS UP, CALL LIGHT AND BEDSIDE TABLE WITHIN REACH. BED ALARM ON. ALL NURSING NEEDS MET AND PROVIDED. WILL ENDORSE TO DAYSHIFT RN FOR Pt's EDVIN.
[2020-02-28] MEDS: SODIUM CHLORIDE 1000 MG TABLET PO SCH ×3 (08:54→21:17)
[2020-02-28] MEDS: clonazePAM 0.5 MG TABLET PO SCH ×2 (08:54→21:17)
[2020-02-28] MEDS: CHOLECALCIFEROL 1,000 UNIT TABLET (VIT D3) PO SCH (08:54)
[2020-02-28] MEDS: POLYETHYLENE GLYCOL 3350 17 GM POWD.PACK PO SCH (08:54)
[2020-02-28] MEDS: FLUTICASONE/VILANTEROL 1 EACH BLST.W.DEV IH SCH ×2 (08:54→21:17)
[2020-02-28] MEDS: POTASSIUM CHLORIDE 20 MEQ TAB.PRT.SR PO SCH (08:54)
--- NOTE | 2020-02-28 16:27 | NUR ---
RN NOTE COVID swab sent to lab.
--- NOTE | 2020-02-28 18:38 | NUR ---
RN CLOSING NOTE Patient is resting in bed, A/O x3, showing no signs of acute distress or SOB, saturating 95% on 3L NC. Patient has no complaints of pain during my shift. IV line in the LFA #18g is clean and intact s/l. Tele monitor SR 70s-80s. All patient needs met, all due medications given. Bed is in lowest position, side rails x3 in upright position, call light is within reach and patient is aware of how to call for assistance when needed. Fall, safety and aspiration precautions enforced. Will endorse to cane piler.
--- NOTE | 2020-02-28 19:10 | NUR ---
TELE/RN OPENING NOTES: RECEIVED AWAKE AND RESTING IN BED, VERBALLY RESPONSIVE AND ABLE TO MAKE NEEDS KNOWN/ NO S/S OF ACUTE DISTRESS OR SOB NOTED. Pt IS A/OX4. ON 3L OF OXYGEN VIA NC SATURATING AT 95% NO C/O OF PAIN AT THIS TIME. ON TELE MONITOR WITH TELE READING SR 80S IV ACCESS ON LFA #18G, SL. SAFETY MEASURES IN PLACE. BED LOW, LOCKED, HOB ELEVATED, SIDE RAILS UP, CALL LIGHT AND BEDSIDE TABLE WITHIN REACH. BED ALARM ON. PROPER ISOLATION PRECAUTION FOR COVID 19 MAINTAINED. WILL CONTINUE TO MONITOR Pt's CONDITION AND SAFETY THROUGHOUT THE NIGHT.
[2020-02-28] MEDS: MIRTAZAPINE 15 MG TABLET PO SCH (21:17)
[2020-02-28] MEDS: MONTELUKAST SODIUM (10MG) 10 MG TABLET PO SCH (21:17)
[2020-02-28] MEDS: OLANZAPINE 10 MG TABLET PO SCH (21:17)
[2020-02-28] MEDS: SENNOSIDES 8.6 MG TABLET PO SCH (21:17)
[2020-02-28] MEDS: ATORVASTATIN 40 MG TABLET PO SCH (21:18)
[2020-02-28] MEDS: ENOXAPARIN SODIUM 40 MG/0.4 ML DISP.SYRIN SQ SCH (21:22)
[2020-02-29] VITALS (8 sets, daily range): BP systolic 108–139; BP diastolic 52–102
--- NOTE | 2020-02-29 06:27 | NUR ---
TELE/RN CLOSING NOTES: NO SIGNIFICANT CHANGES IN Pt's CONDITION. REMAINS A/OX4. NO S/S OF ACUTE DISTRESS OR SOB NOTED DURING THE NIGHT. TELE READING OF 70S SR. Pt IS RESTING COMFORTABLY IN BED. SAFETY MEASURES IN PLACE. BED LOW, LOCKED, HOB ELEVATED, SIDE RAILS UP, CALL LIGHT AND BEDSIDE TABLE WITHIN REACH. BED ALARM ON. PROPER ISOLATION FOR COVID 19 MAINTAINED. SECOND SWAB FOR COVID 19 STILL PENDING. ALL NURSING NEEDS MET AND PROVIDED. WILL ENDORSE TO DAYSHIFT RN FOR Pt's EDVIN.
--- NOTE | 2020-02-29 06:38 | NUR ---
WOUND CARE CONSULT WOUND CARE RECEIVED CONSULT FOR SACRAL WOUND. WOUND CARE WILL DEFER TO PLASTIC SURGICAL TEAM THEY ARE CURRENTLY FOLLOWING THIS PATIENT. PATIENT WITH JULIA AT 17, PER NURSING PATIENT IS AMBULATORY AT THIS TIME. SACRAL ULCER IS NOTED BY JULITA MAC TO BE HEALING. ALL PRESSURE ULCER PREVENTION MEASURES ARE NOTED TO BE IN PLACE AT THIS TIME. WILL SEE PRN.
[2020-02-29 07:44] LABS: BASOPHILS % (AUTO) 0.5 % (0.0-2.0); EOSINOPHILS % (AUTO) 1.7 % (0.0-6.0); HEMATOCRIT 34 % (33-45); HEMOGLOBIN 11.2 g/dL (11.5-14.8); LYMPHOCYTES % (AUTO) 29.3 % (20.0-44.0); MEAN CORPUSCULAR HGB CONC 33 g/dl (31.0-36.0); MEAN CORPUSCULAR VOLUME 88 fL (82-100); MONOCYTES # (AUTO) 0.5 /CMM (0.1-1.30); MONOCYTES % (AUTO) 13.7 % (2.0-12.0); NEUTROPHILS # (AUTO) 1.9 /CMM (1.8-8.9); NEUTROPHILS % (AUTO) 54.8 % (43.0-81.0); PLATELET COUNT (AUTO) 345 /CMM (150-450); RED BLOOD CELL COUNT(AUTO) 3.85 MIL/uL (4.0-5.2); WHITE BLOOD COUNT (AUTO) 3.4 K/uL (4.3-11.0)
--- NOTE | 2020-02-29 07:56 | NUR ---
PARTNERSHIP MANAGER OPENING NOTES RECEIVED PATIENT IN BED, AWAKE, A/O X4. PATIENT IS ON OXYGEN THERAPY AT 3 LPM VIA NASAL CANULA. PATIENT DENIES PAIN AT THIS TIME. EXTERNAL TELE MONITOR WITH A READING OF SR IN THE 80S. LFA # 18 SL PRESENT AND INTACT. SAFETY PRECAUTIONS IN PLACE; BED IN LOW POSITION AND LOCKED, RAILS UP X2, CALL LIGHT WITHIN REACH. WILL CONTINUE TO MONITOR PATIENT.
[2020-02-29 08:02] LABS: CREATININE 0.4 mg/dL (0.6-1.3); POTASSIUM 4.3 mmol/L (3.5-5.1)
[2020-02-29] MEDS: POTASSIUM CHLORIDE 20 MEQ TAB.PRT.SR PO SCH (08:51)
[2020-02-29] MEDS: SODIUM CHLORIDE 1000 MG TABLET PO SCH ×3 (08:51→21:45)
[2020-02-29] MEDS: CHOLECALCIFEROL 1,000 UNIT TABLET (VIT D3) PO SCH (08:51)
[2020-02-29] MEDS: POLYETHYLENE GLYCOL 3350 17 GM POWD.PACK PO SCH (08:52)
[2020-02-29] MEDS: clonazePAM 0.5 MG TABLET PO SCH ×2 (08:52→21:45)
[2020-02-29] MEDS: FLUTICASONE/VILANTEROL 1 EACH BLST.W.DEV IH SCH ×2 (08:59→21:47)
--- NOTE | 2020-02-29 18:41 | NUR ---
STATOR PLATE WASHER CLOSING NOTES PATIENT IN BED, AWAKE, A/O X4. PATIENT IS ON OXYGEN THERAPY AT 3 LPM VIA NASAL CANULA. BREATHING IS EVEN AND UNLABORED; NO SOB PRESENT AT THIS TIME. THROUGHOUT THE DAY PATIENT HAS NOT REPORTED ANY PAIN. EXTERNAL TELE MONITOR WITH A READING OF SR IN THE 80S. LFA # 18 SL PRESENT AND INTACT. ALL NEEDS ATTENDED TO THROUGHOUT THE DAY SAFETY PRECAUTIONS REMAIN IN PLACE; BED IN LOW POSITION AND LOCKED, RAILS UP X2, CALL LIGHT WITHIN REACH. WILL ENDORSE TO GROUNDSKEEPING MAINTENANCE WORKER NURSE.
--- NOTE | 2020-02-29 19:30 | NUR ---
WRAPPER STEMMER HAND NOTE: PATIENT RESTING IN BED, NO ACUTE DISTRESS NOTED. BREATHING EVEN AND UNLABORED, NO SOB NOTED. IV TO LFA IN PLACE. TELE READING SR 79. BED LOCKED AND IN LOWEST POSITION, CALL LIGHT IN REACH. WILL CONTINUE TO MONITOR.
[2020-02-29] MEDS: MONTELUKAST SODIUM (10MG) 10 MG TABLET PO SCH (21:45)
[2020-02-29] MEDS: ATORVASTATIN 40 MG TABLET PO SCH (21:45)
[2020-02-29] MEDS: OLANZAPINE 10 MG TABLET PO SCH (21:45)
[2020-02-29] MEDS: SENNOSIDES 8.6 MG TABLET PO SCH (21:45)
[2020-02-29] MEDS: MIRTAZAPINE 15 MG TABLET PO SCH (21:46)
[2020-02-29] MEDS: ENOXAPARIN SODIUM 40 MG/0.4 ML DISP.SYRIN SQ SCH (21:47)
[2020-03-01 00:50] VITALS: BP 111/74
--- NOTE | 2020-03-01 03:30 | NUR ---
FORMING TUBE SELECTOR NOTE: PATIENT SLEEPING IN BED, NO ACUTE DISTRESS NOTED. BREATHING EVEN AND UNLABORED, NO SOB NOTED. IV TO LFA IN PLACE. TELE READING SR 70. BED LOCKED AND IN LOWEST POSITION, CALL LIGHT IN REACH. WILL CONTINUE TO MONITOR.
[2020-03-01 04:08] VITALS: BP 117/74
--- NOTE | 2020-03-01 06:45 | NUR ---
DIRECTOR OF CODING NOTE: PATIENT RESTING IN BED, NO ACUTE DISTRESS NOTED. BREATHING EVEN AND UNLABORED, NO SOB NOTED. IV TO LFA IN PLACE. TELE READING SR 79. BED LOCKED AND IN LOWEST POSITION, CALL LIGHT IN REACH. WILL ENDORSE TO DAY NURSE TO CONTINUE WITH PLAN OF CARE.
--- NOTE | 2020-03-01 07:30 | NUR ---
OLERICULTURE TEACHER NOTES PATIENT RESTING IN BED, NO RESPIRATORY DISTRESS, NO C/O PAIN AT THIS TIME. NITROGLYCERIN DISTRIBUTOR ON SR 77 SKIN WARM TO TOUCH, IV ACCESS SITE INTACT AND PATENT. PATIENT'S NEEDS ATTENDED, BED ON LOWEST LOCKED POSITION, CALL LIGHT WITHIN REACH. WILL CONTINUE TO MONITOR.
[2020-03-01 08:10] VITALS: BP 118/78
[2020-03-01] MEDS: clonazePAM 0.5 MG TABLET PO SCH (08:58)
[2020-03-01] MEDS: FLUTICASONE/VILANTEROL 1 EACH BLST.W.DEV IH SCH (08:58)
[2020-03-01] MEDS: POLYETHYLENE GLYCOL 3350 17 GM POWD.PACK PO SCH (08:58)
[2020-03-01] MEDS: SODIUM CHLORIDE 1000 MG TABLET PO SCH ×2 (08:58→12:14)
[2020-03-01] MEDS: CHOLECALCIFEROL 1,000 UNIT TABLET (VIT D3) PO SCH (08:58)
[2020-03-01] MEDS: POTASSIUM CHLORIDE 20 MEQ TAB.PRT.SR PO SCH (08:58)
--- NOTE | 2020-03-01 16:35 | NUR ---
HEAD MACHINIST NOTES PATIENT DISCHARGED IN STABLE CONDITION, NO RESPIRATORY DISTRESS, NO C/O PAIN AT THIS TIME. GAVE PATIENT DISCHARGE INSTRUCTIONS, VERBALIZED UNDERSTANDING. SKIN ASSESSED PHOTO TAKEN AND PUT IN CHART. IV REMOVED AND APPLIED PRESSURE DRESSING. BELONGINGS ACCOUNTED FOR AND BELONGINGS LIST SIGNED. PATIENT'S NEEDS ATTENDED, PATIENT LEFT VIA GURNEY WITH PARAMEDICS.
== END 2020-03-01 16:35 | DRG 177 ==
LOC: ER 13:27 → TELE2 17:38
PROVIDERS: ADMIT Internal Medicine; ATTEND Internal Medicine
DX: U07.1 COVID-19 (principal); L89.154 Pressure ulcer of sacral region, stage 4; J12.89 Other viral pneumonia; J96.91 Respiratory failure, unspecified with hypoxia; J44.0 Chronic obstructive pulmonary disease with (acute) lower respiratory infection; E87.1 Hypo-osmolality and hyponatremia; E46 Unspecified protein-calorie malnutrition; Z68.1 Body mass index [BMI] 19.9 or less, adult; I10 Essential (primary) hypertension; Z87.891 Personal history of nicotine dependence; D70.9 Neutropenia, unspecified; R63.4 Abnormal weight loss; Z88.0 Allergy status to penicillin; E78.01 Familial hypercholesterolemia; E87.6 Hypokalemia; R74.0 Nonspecific elevation of levels of transaminase and lactic acid dehydrogenase [LDH]; Z99.81 Dependence on supplemental oxygen
CPT/HCPCS: 36415; 71045-TC; 80048-TC; 80053-TC; 80076-TC; 82550-TC; 82728-TC; 83615-TC; 83880; 84484-TC; 85025-TC; 86140-TC; 87081-TC; G0378; J1650; J2930; J7040